=== PATIENT | male | born 1945 | race Two or more races ===

== ENCOUNTER → 2023-01-17 | Outpatient (CLI) | payer OTHER ==
[2023-01-17 10:12] LABS: Basophils # (auto) 0.1 10 ^3/uL (0-0.2); Basophils % (auto) 0.9 % (0.0-2.0); Eosinophils # (auto) 0.3 10 ^3/uL (0-0.8); Eosinophils % (auto) 4.1 % (0.0-7.0); Hematocrit 39.6 % (41.0-53.0); Hemoglobin 13.4 g/dL (13.5-17.5); Lymphocytes # (auto) 1.9 10 ^3/uL (0.4-5.4); Lymphocytes % (auto) 25.4 % (10.0-50.0); Mean Corpuscular Hemoglobin 31.5 pg (28.0-32.0); Mean Corpuscular Hgb Conc. 33.8 g/dL (32.0-36.0); Mean Corpuscular Volume 93.3 fL (80.0-100.0); Monocytes # (auto) 0.6 10 ^3/uL (0-1.3); Neutrophils # (auto) 4.6 10 ^3/uL (1.6-8.6); Neutrophils % (auto) 61.6 % (37.0-80.0); Nucleated Red Blood Cells % 0.1 %; Red Blood Cells 4.25 10^6/uL (4.5-5.90); White Blood Cell 7.5 10^3/uL (4.4-10.8)
[2023-01-17 10:50] LABS: Albumin 3.6 g/dL (3.4-5.0); BUN/Creatinine Ratio 20.2 (10.0-20.0); Potassium 4.2 mmol/L (3.5-5.1)
[2023-01-17 10:56] LABS: Bilirubin, Total 0.5 mg/dL (0.2-1.0); Total Protein 7.5 g/dL (6.4-8.2)
[2023-01-17 12:23] LABS: Urine Bacteria NONE SEEN /hpf (None Seen); Urine Blood Negative /uL (Negative); Urine Clarity Clear (Clear); Urine Color Yellow (Yellow); Urine Protein, UAD Negative (Negative); Urine Specific Gravity 1.023 (1.001-1.035); Urine Urobilinogen Normal (Negative); Urine WBC 2 /hpf (0 - 3); Urine pH 5.5 (5.0-8.0)
== END | disposition home or self-care (01) ==
LOC: LAB 09:52
PROVIDERS: ATTEND Internal Medicine
DX: Z12.11 Encounter for screening for malignant neoplasm of colon (principal); Z00.00 Encounter for general adult medical examination without abnormal findings; I10 Essential (primary) hypertension
CPT/HCPCS: 36415; 80053; 80061; 81001; 82270; 83036; 84443; 85025

== ENCOUNTER → 2023-02-15 | Outpatient (CLI) | payer OTHER | END | disposition home or self-care (01) | LOC: XYW 10:49 | PROVIDERS: ATTEND Internal Medicine | DX: I37.1 Nonrheumatic pulmonary valve insufficiency (principal); R01.1 Cardiac murmur, unspecified | CPT/HCPCS: 93306 ==

== ENCOUNTER → 2023-05-02 | Outpatient (CLI) | payer OTHER ==
[2023-05-02 09:28] LABS: Basophils # (auto) 0.1 10 ^3/uL (0-0.2); Basophils % (auto) 1.1 % (0.0-2.0); Eosinophils # (auto) 0.3 10 ^3/uL (0-0.8); Eosinophils % (auto) 4.3 % (0.0-7.0); Hematocrit 41.3 % (41.0-53.0); Lymphocytes # (auto) 1.9 10 ^3/uL (0.4-5.4); Mean Corpuscular Hemoglobin 32.1 pg (28.0-32.0); Mean Corpuscular Hgb Conc. 33.8 g/dL (32.0-36.0); Monocytes # (auto) 0.5 10 ^3/uL (0-1.3); Monocytes % (auto) 7.1 % (0.0-12.0); Neutrophils # (auto) 3.9 10 ^3/uL (1.6-8.6); Neutrophils % (auto) 58.5 % (37.0-80.0); Red Blood Cells 4.35 10^6/uL (4.5-5.90); White Blood Cell 6.6 10^3/uL (4.4-10.8)
[2023-05-02 10:38] LABS: Albumin 4.3 g/dL (3.2-4.8); Bilirubin, Direct 0.2 mg/dL (<0.3); Bilirubin, Total 0.6 mg/dL (0.2-1.0)
[2023-05-02 10:50] LABS: Hepatitis B Surface Antigen Negative (Negative)
[2023-05-02 11:11] LABS: Hepatitis A Ab IgM Negative
[2023-05-02 11:12] LABS: Hepatitis B Core IgM Negative; Hepatitis C Antibody Negative (Negative)
[2023-05-02 11:29] LABS: Creatinine, Urine 71.74 mg/dL (30.0-125.0)
== END | disposition home or self-care (01) ==
LOC: LAB 09:15
PROVIDERS: ATTEND Internal Medicine
DX: R73.03 Prediabetes (principal)
CPT/HCPCS: 36415; 80061; 80074; 80076; 82043; 82570; 85025

== ENCOUNTER → 2023-08-04 | Outpatient (CLI) | payer OTHER | END | disposition home or self-care (01) | LOC: LAB 09:01 | PROVIDERS: ATTEND Internal Medicine | DX: R73.03 Prediabetes (principal) | CPT/HCPCS: 36415; 83036 ==

== ENCOUNTER → 2023-10-28 | Outpatient (CLI) | payer OTHER | END | disposition home or self-care (01) | LOC: LAB 11:00 | PROVIDERS: ATTEND Family Medicine | DX: D48.5 Neoplasm of uncertain behavior of skin (principal) ==

== ENCOUNTER → 2023-11-04 | Outpatient (CLI) | payer OTHER ==
[2023-11-04 08:34] LABS: Creatinine, Urine 125.01 mg/dL (30.0-125.0)
== END | disposition home or self-care (01) ==
LOC: LAB 07:41
PROVIDERS: ATTEND Internal Medicine
DX: I12.9 Hypertensive chronic kidney disease with stage 1 through stage 4 chronic kidney disease, or unspecified chronic kidney disease (principal); E11.22 Type 2 diabetes mellitus with diabetic chronic kidney disease; N18.2 Chronic kidney disease, stage 2 (mild); E78.5 Hyperlipidemia, unspecified; E55.9 Vitamin D deficiency, unspecified
CPT/HCPCS: 36415; 82043; 82306; 82570; 82607

== ENCOUNTER → 2024-02-28 | Outpatient (CLI) | payer OTHER ==
[~2024-02-28] MED LIST: AMOX500T86 PO; LORA-1130 PO
[2024-02-28 09:31] LABS: Basophils # (auto) 0.1 10 ^3/uL (0-0.2); Basophils % (auto) 1.4 % (0.0-2.0); Eosinophils # (auto) 0.3 10 ^3/uL (0-0.8); Eosinophils % (auto) 4.3 % (0.0-7.0); Hematocrit 39.1 % (41.0-53.0); Hemoglobin 13.4 g/dL (13.5-17.5); Lymphocytes # (auto) 1.3 10 ^3/uL (0.4-5.4); Lymphocytes % (auto) 21.9 % (10.0-50.0); Mean Corpuscular Hemoglobin 33.4 pg (28.0-32.0); Mean Corpuscular Hgb Conc. 34.4 g/dL (32.0-36.0); Mean Corpuscular Volume 97.2 fL (80.0-100.0); Monocytes # (auto) 0.5 10 ^3/uL (0-1.3); Monocytes % (auto) 7.5 % (0.0-12.0); Neutrophils % (auto) 64.9 % (37.0-80.0); Platelet Count (auto) 317 10^3/uL (140-450); Red Blood Cells 4.02 10^6/uL (4.5-5.90); White Blood Cell 6.2 10^3/uL (4.4-10.8)
[2024-02-28 10:32] LABS: Alanine Aminotransferase 32 U/L (7-40); Albumin 4.1 g/dL (3.2-4.8); Alkaline Phosphatase 69 U/L (46-116); Anion Gap 5 (5-15); Aspartate Aminotransferase 18 U/L (13-40); Calcium 9.5 mg/dL (8.7-10.4); Carbon Dioxide 25 mmol/L (20-30); Chloride 112 mmol/L (98-107); Glucose 114 mg/dL (74-106); Potassium 4.2 mmol/L (3.5-5.1); Sodium 142 mmol/L (136-145)
[2024-02-28 10:33] LABS: BUN/Creatinine Ratio 18.9 (10.0-20.0); Blood Urea Nitrogen 17 mg/dL (9-23); Erythrocyte Sedimentation Rate 6 mm/hr (0-20)
[2024-02-28 10:34] LABS: Bilirubin, Total 0.3 mg/dL (0.2-1.0); Total Protein 6.5 g/dL (5.7-8.2)
== END | disposition home or self-care (01) ==
LOC: LAB 08:59
PROVIDERS: ATTEND Internal Medicine
DX: R73.03 Prediabetes (principal); G50.0 Trigeminal neuralgia
CPT/HCPCS: 36415; 80053; 83036; 85025; 85652

== ENCOUNTER → 2024-06-18 | Outpatient (CLI) | payer MEDICARE, OTHER ==
[2024-06-18 09:58] LABS: Basophils # (auto) 0.1 10 ^3/uL (0-0.2); Eosinophils # (auto) 0.3 10 ^3/uL (0-0.8); Eosinophils % (auto) 4.4 % (0.0-7.0); Hematocrit 42.9 % (41.0-53.0); Hemoglobin 14.4 g/dL (13.5-17.5); Lymphocytes % (auto) 28.6 % (10.0-50.0); Mean Corpuscular Hemoglobin 32.1 pg (28.0-32.0); Mean Corpuscular Hgb Conc. 33.5 g/dL (32.0-36.0); Mean Corpuscular Volume 95.8 fL (80.0-100.0); Monocytes # (auto) 0.6 10 ^3/uL (0-1.3); Nucleated Red Blood Cells % 0.1 %; Platelet Count (auto) 348 10^3/uL (140-450); Red Blood Cells 4.48 10^6/uL (4.5-5.90); Red Cell Distribution Width 13.2 % (11.8-14.3); White Blood Cell 6.9 10^3/uL (4.4-10.8)
[2024-06-18 10:16] LABS: Alanine Aminotransferase 32 U/L (7-40); Alkaline Phosphatase 85 U/L (46-116); Anion Gap 8 (5-15); BUN/Creatinine Ratio 26.4 (10.0-20.0); Calcium 9.9 mg/dL (8.7-10.4); Carbon Dioxide 24 mmol/L (20-31); Potassium 4.5 mmol/L (3.5-5.1); Sodium 140 mmol/L (136-145); Triglycerides 97 mg/dL (< 150)
[2024-06-18 10:17] LABS: Albumin 4.3 g/dL (3.2-4.8); Aspartate Aminotransferase 19 U/L (13-40); Bilirubin, Total 0.4 mg/dL (0.2-1.0); Cholesterol 183 mg/dL (< 200); Total Protein 6.9 g/dL (5.7-8.2)
[2024-06-18 10:35] LABS: Blood Urea Nitrogen 24 mg/dL (9-23); Chloride 108 mmol/L (98-107); Glucose 124 mg/dL (74-106); HDL Cholesterol 67 mg/dL (40-59); LDL Cholesterol 104 mg/dL (< 100)
[2024-06-18 10:57] LABS: Creatinine, Urine 71.09 mg/dL (30.0-125.0)
== END | disposition home or self-care (01) ==
LOC: LAB 08:40
PROVIDERS: ATTEND Internal Medicine
DX: D64.9 Anemia, unspecified (principal); I10 Essential (primary) hypertension; M81.0 Age-related osteoporosis without current pathological fracture; E11.9 Type 2 diabetes mellitus without complications
CPT/HCPCS: 36415; 80053; 80061; 82043; 82306; 82570; 82607; 83036; 84443; 85025

== ENCOUNTER → 2024-09-19 | Outpatient (CLI) | payer MEDICARE, MEDICAID ==
[2024-09-19 08:20] LABS: Alanine Aminotransferase 16 U/L (7-40); Albumin 4.3 g/dL (3.2-4.8); Alkaline Phosphatase 83 U/L (46-116); Anion Gap 5 (5-15); BUN/Creatinine Ratio 19.1 (10.0-20.0); Bilirubin, Total 0.4 mg/dL (0.2-1.0); Blood Urea Nitrogen 18 mg/dL (9-23); Calcium 9.4 mg/dL (8.7-10.4); Carbon Dioxide 24 mmol/L (20-31); Cholesterol 141 mg/dL (< 200); HDL Cholesterol 49 mg/dL (40-59); LDL Cholesterol 77 mg/dL (< 100); Potassium 4.2 mmol/L (3.5-5.1); Sodium 142 mmol/L (136-145); Total Protein 6.6 g/dL (5.7-8.2); Triglycerides 79 mg/dL (< 150)
[2024-09-19 08:21] LABS: Aspartate Aminotransferase 12 U/L (13-40); Chloride 113 mmol/L (98-107); Glucose 122 mg/dL (74-106)
== END | disposition home or self-care (01) ==
LOC: LAB 07:45
PROVIDERS: ATTEND Internal Medicine
DX: Z12.11 Encounter for screening for malignant neoplasm of colon (principal); E78.5 Hyperlipidemia, unspecified; R73.03 Prediabetes
CPT/HCPCS: 36415; 80053; 80061; 82270; 83036

== ENCOUNTER 2025-01-04 09:09 | Emergency (ER) | payer MEDICARE, MEDICAID ==
[~2025-01-04] VITALS: Ht 152.4 cm; Wt 74.3 kg
--- NOTE | 2025-01-04 09:30 | ED.PDOC ---
Eye-HPI HPI Comments A 79 YEAR OLD MALE PRESENTS TO THE ED WITH COMPLAINT OF RIGHT UPPER DENTAL PAIN. PATIENT STATES HE HAS BEEN EXPERIENCING RIGHT UPPER DENTAL PAIN FOR THE PAST 1 WEEK. PATIENT REPORTS HE ALSO HAD SINUS CONGESTION, SINUS PRESSURE, SINUS PAIN FOR THE PAST 1 WEEK. PATIENT NOTES HE WENT TO [facility] [address] A[address] A [address] MAXILLOFACIAL WITH IV CONTRAST AND BLOOD TEST WERE DONE WHICH WAS NORMAL AND WAS PRESCRIBED AUGMENTIN FOR SINUSITIS. PATIENT REPORTS THERE HAS BEEN NO IMPROVEMENT IN HIS SYMPTOMS AND WOULD LIKE TO BE EVALUATED ONCE AGAIN. PT REQUESTS PAIN MEDICATION. PATIENT DENIES FEVER, CHILLS, SHORTNESS OF BREATH, CHEST PAIN, ABDOMINAL PAIN, NAUSEA, VOMITING, HEADACHE, OR OTHER COMPLAINTS. NO OTHER SYMPTOMS OR MODIFYING FACTORS AT THIS TIME. PATIENT IS ALERT, ORIENTED X 4, AND HAS STEADY GAIT. Chief Complaint: Face pain Time Seen by MD: 09:27 Reviewed Notes: Nurses Notes, Medications, Allergies Allergies: Coded Allergies: NO KNOWN ALLERGIES (Unverified , 01/20/24) Home Meds Active Scripts Tramadol HCl (Tramadol HCl) 50 Mg Tab, 50 MG PO BID, #20 TAB Prov:JOSE SERRATO 01/04/25 Clindamycin Hcl (Clindamycin Hcl) 300 Mg Cap, 1 CAP PO TID, #30 CAP Prov:JOSE SERRATO 01/04/25 Loratadine & Pseudoephedrine (Claritin-D 24 Hour 10-240 mg) 1 Tab Tab, 1 TAB PO DAILY PRN for 7 Days, #7 TAB Prov:CARMENZA BOYD MD 01/20/24 Amoxicillin & Pot Clavulanate (Augmentin) 500 Mg Tab, 1 TAB PO BID, #14 TAB Prov:CARMENZA BOYD MD 01/20/24 Information Source: Patient Mode of Arrival: Ambulatory Timing: Days Duration: Since onset, Days Prehospital treatment: None Quality: Pain, Red Lids: Normal Conjunctiva: Normal Cornea: Normal Pupils: Normal EOM: Normal Fundus: Normal Slit lamp exam: Normal Anterior chamber: Normal Mouth Location: Right, Upper, Tooth/Teeth, Gums Mouth: Right, Upper, Premolar, Molar, Tender, Carious ENT Ear Exam: Normal, Normal, Normal Nose: Normal Sinuses: Frontal Oropharynx: Normal Onset: Spontaneous Throat Exposed to: None History of: None Last Tetanus: Unknown Modifying factors: Nothing Associated signs and symptoms: Nasal Symptoms, Tooth Pain Past Medical History PAST MEDICAL HISTORY: High Lipids, HTN Surgical History: Denies all surgeries Family History Family History: Reviewed,noncontributory to illness, No family hx of Cancer, No family hx of DM, No family hx of Heart argenis, No family hx of HTN, No family hx ofKidney argenis, No family hx of Liver argenis, No family hx of Lung argenis, No family hx of Stroke Social History Smoker: Non-Smoker Alcohol: Denies ETOH Use Drugs: Denies Drug Use Lives In: Home Constitutional: denies: chills, diaphoresis, fatigue, fever, malaise, sweats, weakness, others EENTM: reports: mouth pain (RIGHT UPPER DENTAL PAIN), nose congestion; denies: blurred vision, double vision, ear bleeding, ear discharge, ear drainage, ear pain, ear ringing, eye pain, eye redness, hearing loss, mouth swelling, nasal discharge, nose bleeding, nose pain, photophobia, tearing, throat pain, throat swelling, voice changes Respiratory: denies: cough, hemoptysis, orthopnea, SOB at rest, shortness of breath, SOB with excertion, stridor, wheezing, others Cardiovascular: denies: chest pain, dizzy spells, diaphoresis, Dyspnea on exertion, edema, irregular heart beat, left arm pain, lightheadedness, palpitations, PND, syncope, others Gastrointestinal: denies: abdomen distended, abdominal pain, blood streaked bowels, constipated, diarrhea, dysphagia, difficulty swallowing, hematemesis, melena, nausea, poor appetite, poor fluid intake, rectal bleeding, rectal pain, vomiting, others Genitourinary: denies: burning, dysuria, flank pain, frequency, hematuria, incontinence, penile discharge, penile sore, pain, testicle pain, testicle swelling, urgency, others Neurological: denies: dizziness, fainting, headache, left sided numbness, left sided weakness, numbness, paresthesia, pre-existing deficit, right sided numbness, right sided weakness, seizure, speech problems, tingling, tremors, weakness, others Musculoskeletal: denies: back pain, gout, joint pain, joint swelling, muscle pain, muscle stiffness, neck pain, others Integumetry: denies: bruises, change in color, change in hair/nails, dryness, laceration, lesions, lumps, rash, wounds, others Allergic/Immunocompromised: denies: Difficulty Healing, Frequent Infections, Hives, Itching, others Hematologic/Lymphatic: denies: anemia, blood clots, easy bleeding, easy bruising, swollen glands, others Endocrine: denies: excessive hunger, excessive sweating, excessive thirst, excessive urination, flushing, intolerance to cold, intolerance to heat, unexplained weight gain, unexplained weight loss, others Psychiatric: denies: anxiety, bipolar disorder, depression, hopeless, panic disorder, schizophrenia, sleepless, suicidal, others All Other Systems: Reviewed and Negative Physical Exam General Appearance: No Apparent Distress, Normal HEENT: Normal ENT Inspection, PERRL/EOMI, Pharynx Normal, Sinuses (TENDERNESS ON RIGHT MAXILLARY SINUSES, NO NASAL CONGESTION AND POST NASAL DRIP, NO FACIAL SWELLING. ), TMs Normal, Other (ERYTHEMA AND SWELLING ON RIGHT UPPER GUM AROUND TOOTH, DENTAL INFECTION, NO FACIAL SWELLING. ) Neck: Full Range of Motion, Non-Tender, Normal, Normal Inspection Respiratory: Chest Non-Tender, Lungs Clear, No Accessory Muscle Use, No Respiratory Distress, Normal Breath Sounds Cardiovascular: No Edema, No JVD, No Murmur, No Gallop, Normal Peripheral Pulses, Regular Rate/Rhythm Breast Exam: Deferred Gastrointestinal: No Organomegaly, Non Tender, No Pulsatile Mass, Normal Bowel Sounds, Soft Genitalia: Deferred Pelvic: Deferred Rectal: Deferred Extremities: No calf tenderness, Normal capillary refill, Normal inspection, Normal range of motion, Non-tender, No pedal edema Musculoskeletal : Apperance: Normal Neurologic: Alert, can labeler II-XII nml as Tested, No Motor Deficits, Normal Affect, Normal Mood, No Sensory Deficits Cerebellar Function: Normal Reflexes: Normal Skin: Dry, Normal Color, Warm Peripheral Pulses: 2+ carotid (R), 2+ carotid (L) Lymphatic: No Adenopathy Was a procedure done? Was a procedure done?: No EENT DIFF Eye: N/A Ear: Otitis Media, Dental, Pharyngitis, Sinusitis Nose: N/A Mouth: Other (DENTAL PAIN, DENTAL CARIES, DENTAIN INFECTION, DENTAL ABSCESS, GINGIVITIS) Sore Throat: N/A X-Ray, Labs, Meds, VS Vital Signs Date Time Temp Pulse Resp B/P (MAP) Pulse Ox O2 Delivery O2 Flow Rate FiO2 01/04/25 09:22 98.3 87 16 143/92 (109) 94 98.3 X-Ray, Labs, Meds, VS Comment EXTERNAL MEDICAL RECORDS REVIEWED: [NONE] INDEPENDENT HISTORIANS: [NONE] SOCIAL DETERMINANTS OF HEALTH: [NONE] LABS ORDERED: NONE REVIEWED AND INTERPRETED RESULTS: NONE IMAGING ORDERED: NONE, PATIENT WAS OFFERED A CT SCAN OF HIS HEAD, BUT PATIENT DECLINED AT THIS TIME HE STATES HE ALREADY HAD A CT SCAN DONE AT [facility]. TREATMENTS ORDERED: ROCEPHIN 1G IM PROCEDURES PERFORMED: NONE CRITICAL CARE TIME: NONE I HAVE DISCUSSED THE PATIENT WITH THE ATTENDING PHYSICIAN DR. RIOS AND HE AGREES WITH THE PATIENT'S PLAN OF CARE AND DISPOSITION. BASED ON HISTORY OF PRESENT ILLNESS, AND PHYSICAL EXAM, PATIENT WILL BE DISCHARGED HOME. DISCUSSED PLAN FOR DISCHARGE HOME WITH RX [CLINDAMYCIN AND ULTRAM. MEDICATION WARNINGS GIVEN. SHARED DECISION MAKING: PATIENT INSTRUCTED TO FOLLOW UP WITH PRIMARY CARE PROVIDER IN 1-2 DAYS FOR RE-EVALUATION OF SYMPTOMS. PATIENT VERBALIZES UNDERSTANDING TO RETURN TO ED FOR NEW OR WORSENING SYMPTOMS OR IF FOLLOW UP WITH PCP CANNOT BE OBTAINED. PATIENT FEELS COMFORTABLE GOING HOME AT THIS TIME. ALL QUESTIONS ADDRESSED AT TIME OF DISCHARGE. Time of 1ST Reevaluation: 10:00 Reevaluation 1ST: Improved Patient Education/Counseling: Diagnosis, Treatment, Need For Follow Up Family Education/Counseling: Diagnosis, Treatment, Need For Follow Up Medical Screening: No EMC Exist At This Time SEPSIS Sepsis Screen Vital Signs Date Time Temp Pulse Resp B/P (MAP) Pulse Ox O2 Delivery O2 Flow Rate FiO2 01/04/25 09:22 98.3 87 16 143/92 (109) 94 98.3 Departure 1 Departure Time of Disposition: 10:20 Impression: Primary Impression: Dental infection Additional Impression: Acute sinusitis Qualified Codes: J01.00 - Acute maxillary sinusitis, unspecified Disposition: HOME / SELF CARE / HOMELESS Condition: Stable Additional Instructions: FOLLOW-UP WITH PCP AND DENTIST IN 1 TO 2 DAYS. TAKE MEDICATIONS PRESCRIBED. RETURN TO ED FOR ANY NEW OR WORSENING SYMPTOMS. e-Prescriptions Tramadol HCl (Tramadol HCl) 50 Mg Tab 50 MG PO BID, #20 TAB Prov: JOSE SERRATO 01/04/25 Clindamycin Hcl (Clindamycin Hcl) 300 Mg Cap 1 CAP PO TID, #30 CAP Prov: JOSE SERRATO 01/04/25 Discharged With: Self Critical Care Note Critical Care Time?: No Stability Stability form required: No I personally scribed for JOSE SERRATO ([email or web address]) on 01/04/25 at 09:30. Electronically submitted by Gilmer Schneider ([email or web address]). I personally scribed for JOSE SERRATO ([email or web address]) on 01/04/25 at 09:35. Electronically submitted by Gilmer Schneider ([email or web address]). JOSE SERRATO Jan 04, 2025 09:30
[2025-01-04] MEDS ORDERED: TRAM-626 PO (09:35)
[2025-01-04] MEDS ORDERED: CLIN1CAP70 PO (09:35)
[2025-01-04] MEDS: cefTRIAXone SOD 1,000 MG VL IM ONE (09:58)
[2025-01-04 10:06] VITALS: BP 134/77; PULSE 80; RESP 16; TEMP 98.4; O2SAT 94
== END 2025-01-04 10:05 | disposition home or self-care (01) ==
LOC: ER 09:11
DX: K04.7 Periapical abscess without sinus (principal); J01.00 Acute maxillary sinusitis, unspecified; I10 Essential (primary) hypertension; E78.5 Hyperlipidemia, unspecified; Z79.899 Other long term (current) drug therapy
CPT/HCPCS: 96372; 99283; J0696

== ENCOUNTER 2025-01-08 09:28 | Emergency (ER) | payer MEDICARE, MEDICAID ==
[~2025-01-08] VITALS: Ht 165.1 cm; Wt 73.7 kg
[~2025-01-08 09:28] MED LIST changes: +CLIN1CAP70 PO; +TRAM-626 PO
--- NOTE | 2025-01-08 09:54 | ED.PDOC ---
History of Present Illness HPI Comments 79-year-old male with a history of hypertension, hyperlipidemia, trigeminal neuralgia, and tobacco use, presents to the ED for the chief complaint of 5/10 right-sided facial pain below the cheek bone. Patient states that was previously diagnosed with a sinus infection on 01-04-25, but his pain has been going on for the past two weeks, with no alleviating factors. Patient denies any nausea, vomiting, diarrhea, headache, photophobia, congestion, or any other symptoms or modifiers at this time. Time Seen by MD: 09:47 Reviewed Notes: Nurses Notes, Medications, Allergies Allergies: Coded Allergies: NO KNOWN ALLERGIES (Unverified , 01/20/24) Home Meds Active Scripts Tramadol HCl (Tramadol HCl) 50 Mg Tab, 50 MG PO BID, #20 TAB Prov:JOSE SERRATO 01/04/25 Clindamycin Hcl (Clindamycin Hcl) 300 Mg Cap, 1 CAP PO TID, #30 CAP Prov:JOSE SERRATO 01/04/25 Loratadine & Pseudoephedrine (Claritin-D 24 Hour 10-240 mg) 1 Tab Tab, 1 TAB PO DAILY PRN for 7 Days, #7 TAB Prov:CARMENZA BOYD MD 01/20/24 Amoxicillin & Pot Clavulanate (Augmentin) 500 Mg Tab, 1 TAB PO BID, #14 TAB Prov:CARMENZA BOYD MD 01/20/24 Information Source: Patient Mode of Arrival: Ambulatory Severity: Moderate Timing: Weeks Duration: Intermittent Prehospital treatment: None Past Medical History PAST MEDICAL HISTORY: High Lipids, HTN Surgical History: Denies all surgeries Family History Family History: Reviewed,noncontributory to illness, No family hx of Cancer, No family hx of DM, No family hx of Heart argenis, No family hx of HTN, No family hx ofKidney argenis, No family hx of Liver argenis, No family hx of Lung argenis, No family hx of Stroke Social History Smoker: Non-Smoker Alcohol: Denies ETOH Use Drugs: Denies Drug Use Lives In: Home Constitutional: denies: chills, diaphoresis, fatigue, fever, malaise, sweats, weakness, others EENTM: reports: nose congestion, nose pain; denies: blurred vision, double vision, ear bleeding, ear discharge, ear drainage, ear pain, ear ringing, eye pain, eye redness, hearing loss, mouth pain, mouth swelling, nasal discharge, nose bleeding, photophobia, tearing, throat pain, throat swelling, voice changes, others Respiratory: denies: cough, hemoptysis, orthopnea, SOB at rest, shortness of breath, SOB with excertion, stridor, wheezing, others Cardiovascular: denies: chest pain, dizzy spells, diaphoresis, Dyspnea on exertion, edema, irregular heart beat, left arm pain, lightheadedness, palpitations, PND, syncope, others Gastrointestinal: denies: abdomen distended, abdominal pain, blood streaked bowels, constipated, diarrhea, dysphagia, difficulty swallowing, hematemesis, melena, nausea, poor appetite, poor fluid intake, rectal bleeding, rectal pain, vomiting, others Genitourinary: denies: burning, dysuria, flank pain, frequency, hematuria, incontinence, penile discharge, penile sore, pain, testicle pain, testicle swelling, urgency, others Neurological: denies: dizziness, fainting, headache, left sided numbness, left sided weakness, numbness, paresthesia, pre-existing deficit, right sided numbness, right sided weakness, seizure, speech problems, tingling, tremors, weakness, others Musculoskeletal: denies: back pain, gout, joint pain, joint swelling, muscle pain, muscle stiffness, neck pain, others Integumetry: denies: bruises, change in color, change in hair/nails, dryness, laceration, lesions, lumps, rash, wounds, others Allergic/Immunocompromised: denies: Difficulty Healing, Frequent Infections, Hives, Itching, others Hematologic/Lymphatic: denies: anemia, blood clots, easy bleeding, easy bruising, swollen glands, others Endocrine: denies: excessive hunger, excessive sweating, excessive thirst, excessive urination, flushing, intolerance to cold, intolerance to heat, unexplained weight gain, unexplained weight loss, others Psychiatric: denies: anxiety, bipolar disorder, depression, hopeless, panic disorder, schizophrenia, sleepless, suicidal, others All Other Systems: Reviewed and Negative Physical Exam General Appearance: Mild Distress, Normal HEENT: Normal ENT Inspection, Pharynx Normal, Sinuses (Notable crepitus to the right TMJ, airway intact, mmm), TMs Normal Neck: Full Range of Motion, Non-Tender, Normal, Normal Inspection Respiratory: Chest Non-Tender, Lungs Clear, No Accessory Muscle Use, No Respiratory Distress, Normal Breath Sounds Cardiovascular: No Edema, No JVD, No Murmur, No Gallop, Normal Peripheral Pulses, Regular Rate/Rhythm Breast Exam: Deferred Gastrointestinal: No Organomegaly, Non Tender, No Pulsatile Mass, Normal Bowel Sounds, Soft Genitalia: Deferred Pelvic: Deferred Rectal: Deferred Extremities: No calf tenderness, Normal capillary refill, Normal inspection, Normal range of motion, Non-tender, No pedal edema Musculoskeletal : Apperance: Normal Neurologic: Alert, spanish teacher II-XII nml as Tested, No Motor Deficits, Normal Affect, Normal Mood, No Sensory Deficits Cerebellar Function: Normal Reflexes: Normal Skin: Dry, Normal Color, Warm Lymphatic: No Adenopathy Was a procedure done? Was a procedure done?: No X-Ray, Labs, Meds, VS Vital Signs Date Time Temp Pulse Resp B/P (MAP) Pulse Ox O2 Delivery O2 Flow Rate FiO2 01/08/25 09:40 97.8 91 18 131/90 (104) 94 97.8 Lab Test 01/08/25 10:29 01/08/25 10:21 Range/Units White Blood Count 7.4 4.4-10.8 10^3/uL Red Blood Count 4.43 L 4.5-5.90 10^6/uL Hemoglobin 14.7 13.5-17.5 g/dL Hematocrit 42.0 41.0-53.0 % Mean Corpuscular Volume 94.7 80.0-100.0 fL Mean Corpuscular Hemoglobin 33.0 H 28.0-32.0 pg Mean Corpuscular Hemoglobin Concent 34.9 32.0-36.0 g/dL Red Cell Distribution Width 13.2 11.8-14.3 % Platelet Count 334 140-450 10^3/uL Mean Platelet Volume 8.3 6.9-10.8 fL Neutrophils (%) (Auto) 65.6 37.0-80.0 % Lymphocytes (%) (Auto) 23.2 10.0-50.0 % Monocytes (%) (Auto) 7.8 0.0-12.0 % Eosinophils (%) (Auto) 2.5 0.0-7.0 % Basophils (%) (Auto) 0.9 0.0-2.0 % Neutrophils # (Auto) 4.9 1.6-8.6 10 ^3/uL Lymphocytes # (Auto) 1.7 0.4-5.4 10 ^3/uL Monocytes # (Auto) 0.6 0-1.3 10 ^3/uL Eosinophils # (Auto) 0.2 0-0.8 10 ^3/uL Basophils # (Auto) 0.1 0-0.2 10 ^3/uL Nucleated Red Blood Cells 0.1 % Erythrocyte Sedimentation Rate 6 0-20 mm/hr Sodium Level 138 136-145 mmol/L Potassium Level 4.0 3.5-5.1 mmol/L Chloride Level 105 98-107 mmol/L Carbon Dioxide Level 24 20-31 mmol/L Anion Gap 9 5-15 Blood Urea Nitrogen 20 9-23 mg/dL Creatinine 1.10 0.700-1.30 mg/dL Glomerular Filtration Rate Calc 69 >90 mL/min BUN/Creatinine Ratio 18.2 10.0-20.0 Serum Glucose 120 H 74-106 mg/dL Calcium Level 9.8 8.7-10.4 mg/dL C-Reactive Protein High Sensitivity 0.09 <1.0 mg/dL X-Ray, Labs, Meds, VS Comment 79-year-old male with a history of hypertension, hyperlipidemia, trigeminal neuralgia, and tobacco use, presents to the ED for the chief complaint of 5/10 right-sided facial pain below the cheek bone. Patient arrives alert and oriented, ABC's intact, afebrile, vital signs stable, saturating well in room air CBC was ordered to exclude anemia, blood loss, or infection. BMP was ordered to exclude electrolyte abnormalities, renal failure, dehydration, hyperglycemia CMP was ordered to exclude electrolyte abnormalities, renal failure, dehydration, hyperglycemia and/or liver enzyme abnormalities. Urinalysis was ordered to rule out UTI or hematuria. Sed rate ordered for possible inflammation Diagnostic imaging ordered by me and results interpreted by radiology : Labs in the ED showed (pertinent+ and then pertinent-) Patient was given:_. Tolerated medications with no adverse reaction. On reevaluation, patient had symptomatic improvement. Patient is stable for discharge at this time. External notes reviewed. Test results and diagnostic imaging interpreted. All diagnostic findings, discharge care, education and instructions provided Follow-up with PCP in 2 to 3 days Patient verbalized understanding and agreed to treatment plan Vital signs stable, afebrile, no acute distress noted Patient ambulatory with strong steady gait Advised to return precautions for any new or worsening symptoms, return to ER immediately for re-evaluation Patient is aware that the purpose of this visit was for an acute medical emergency requiring emergent stabilization. Chronic conditions, including malignancies have not been ruled out. Patient is instructed to follow up with PCP as directed and discharge instructions for continued care and workup. If unable to arrange follow-up, patient is to return to the emergency department for reassessment. Patient (parent or legal guardian if applicable) was given verbal and written discharge instructions and acknowledges understanding. Additional MDM Review of External, Non-ED records: External records reviewed. Discussion with independent historian (EMS, family) history obtained from the patient/parents (if applicable) at bedside Chronic conditions affecting care: None Social determinants of health affecting care: None Time of 1ST Reevaluation: 10:19 Reevaluation 1ST: Unchanged Patient Education/Counseling: Diagnosis, Treatment, Need For Follow Up Family Education/Counseling: No Family Present SEPSIS Sepsis Screen Physician Orders C-Reactive Protein (01/08/25 09:53) Vital Signs Date Time Temp Pulse Resp B/P (MAP) Pulse Ox O2 Delivery O2 Flow Rate FiO2 01/08/25 09:40 97.8 91 18 131/90 (104) 94 97.8 Laboratory Tests Test 01/08/25 10:29 White Blood Count 7.4 10^3/uL (4.4-10.8) Departure 1 Departure Time of Disposition: 11:55 Impression: Primary Impression: Trigeminal neuralgia of right side of face Disposition: 01 HOME / SELF CARE / HOMELESS Condition: Stable e-Prescriptions Gabapentin (Gabapentin) 300 Mg Cap 1 CAP PO DAILY for 30 Days, #30 CAP 0 Refills Prov: MENG ANG MANAGER LOCATION 01/08/25 Critical Care Note Critical Care Time?: No Stability Stability form required: No Heart Score Heart Score: Heart Score Response (Comments) Value History N/A 0 EKG N/A 0 Age N/A 0 Risk Factors N/A 0 Troponin N/A 0 Total 0 I personally scribed for MENG ANG MANAGER LOCATION ([email or web address]) on 01/08/25 at 09:54. Electronically submitted by Dionte Doyle ([email or web address]). MENG ANG NP Jan 08, 2025 09:54
[2025-01-08 10:50] LABS: Hematocrit 42.0 % (41.0-53.0); Hemoglobin 14.7 g/dL (13.5-17.5); Mean Corpuscular Hemoglobin 33.0 pg (28.0-32.0); Mean Corpuscular Volume 94.7 fL (80.0-100.0); Nucleated Red Blood Cells % 0.1 %
[2025-01-08 10:54] LABS: Chloride 105 mmol/L (98-107); Potassium 4.0 mmol/L (3.5-5.1); Sodium 138 mmol/L (136-145)
[2025-01-08 10:55] LABS: Anion Gap 9 (5-15); Calcium 9.8 mg/dL (8.7-10.4); Carbon Dioxide 24 mmol/L (20-31)
[2025-01-08 11:00] LABS: BUN/Creatinine Ratio 18.2 (10.0-20.0); Blood Urea Nitrogen 20 mg/dL (9-23)
[2025-01-08 11:01] LABS: Glucose 120 mg/dL (74-106)
[2025-01-08] MEDS ORDERED: GABA-1250 PO (11:58)
[2025-01-08 12:09] VITALS: BP 116/79; PULSE 80; RESP 16; TEMP 98.4; O2SAT 95
== END 2025-01-08 12:11 | disposition home or self-care (01) ==
LOC: ER 09:28
DX: G50.0 Trigeminal neuralgia (principal); E78.5 Hyperlipidemia, unspecified; I10 Essential (primary) hypertension; Z79.899 Other long term (current) drug therapy
CPT/HCPCS: 36415; 80048; 85025; 85652; 86141

== ENCOUNTER 2025-01-21 08:13 | Outpatient (CLI) | payer MEDICARE, MEDICAID ==
[~2025-01-21 08:13] MED LIST changes: +GABA-1250 PO
[2025-01-21 09:02] LABS: Alanine Aminotransferase 25 U/L (7-40); Albumin 4.4 g/dL (3.2-4.8); Alkaline Phosphatase 70 U/L (46-116); Anion Gap 8 (5-15); BUN/Creatinine Ratio 13.9 (10.0-20.0); Bilirubin, Total 0.4 mg/dL (0.2-1.0); Blood Urea Nitrogen 14 mg/dL (9-23); Calcium 9.3 mg/dL (8.7-10.4); Carbon Dioxide 25 mmol/L (20-31); Cholesterol 157 mg/dL (< 200); HDL Cholesterol 54 mg/dL (40-59); Potassium 4.1 mmol/L (3.5-5.1); Sodium 142 mmol/L (136-145); Total Protein 6.6 g/dL (5.7-8.2); Triglycerides 93 mg/dL (< 150)
[2025-01-21 09:03] LABS: Chloride 109 mmol/L (98-107); Glucose 120 mg/dL (74-106)
[2025-01-21 09:11] LABS: Microalb/Creat Ratio, Urine 3.0
== END 2025-01-21 17:00 | disposition home or self-care (01) ==
LOC: LAB 08:13
PROVIDERS: ATTEND Internal Medicine
DX: I10 Essential (primary) hypertension (principal); E11.9 Type 2 diabetes mellitus without complications; E78.5 Hyperlipidemia, unspecified
CPT/HCPCS: 36415; 80053; 80061; 82043; 82570; 83036

== ENCOUNTER 2025-02-12 08:55 | Inpatient (IN) | payer MEDICARE, MEDICAID ==
[~2025-02-12] VITALS: Ht 165.1 cm; Wt 74.5 kg
--- NOTE | 2025-02-12 09:36 | ED.PDOC ---
History of Present Illness HPI Comments 79-year-old male who comes in with chief complaint of shortness a breath. The patient states that the symptoms started that midnight. The patient denies any cough at this time. There has been no fever or chills. The patient also denies any chest pain. He states he has has a history of shortness a breath in the past but has never been diagnosed with anything. The patient does admit to using a significant amount of cigarettes. There has been no recent illness or exposure to anyone with illness. Chief Complaint: Shortness of Breath Time Seen by MD: 09:00 Primary Care Provider: NORA Boone Notes: Nurses Notes, Medications, Allergies (No allergies to medications) Allergies: Coded Allergies: NO KNOWN ALLERGIES (Unverified , 01/20/24) Home Meds Active Scripts Gabapentin (Gabapentin) 300 Mg Cap, 1 CAP PO DAILY for 30 Days, #30 CAP 0 Refills Prov:MENG ANG NP 01/08/25 Tramadol HCl (Tramadol HCl) 50 Mg Tab, 50 MG PO BID, #20 TAB Prov:JOSE SERRATO 01/04/25 Clindamycin Hcl (Clindamycin Hcl) 300 Mg Cap, 1 CAP PO TID, #30 CAP Prov:JOSE SERRATO 01/04/25 Loratadine & Pseudoephedrine (Claritin-D 24 Hour 10-240 mg) 1 Tab Tab, 1 TAB PO DAILY PRN for 7 Days, #7 TAB Prov:CARMENZA BOYD MD 01/20/24 Amoxicillin & Pot Clavulanate (Augmentin) 500 Mg Tab, 1 TAB PO BID, #14 TAB Prov:CARMENZA BOYD MD 01/20/24 Information Source: Patient Mode of Arrival: Ambulatory Severity: Moderate Timing: Hours Duration: Since onset Prehospital treatment: None Associated signs and symptoms Shortness of breath but no chest pain Past Medical History PAST MEDICAL HISTORY: High Lipids, HTN Surgical History: Hernia Repair Family History Family History: Reviewed,noncontributory to illness, No family hx of Cancer, No family hx of DM, No family hx of Heart argenis, No family hx of HTN, No family hx ofKidney argenis, No family hx of Liver argenis, No family hx of Lung argenis, No family hx of Stroke Social History Smoker: Cigarettes Alcohol: Denies ETOH Use Drugs: Denies Drug Use Lives In: Home Constitutional: denies: chills, diaphoresis, fatigue, fever, malaise, sweats, weakness, others EENTM: denies: blurred vision, double vision, ear bleeding, ear discharge, ear drainage, ear pain, ear ringing, eye pain, eye redness, hearing loss, mouth pain, mouth swelling, nasal discharge, nose bleeding, nose congestion, nose pain, photophobia, tearing, throat pain, throat swelling, voice changes, others Respiratory: reports: shortness of breath; denies: cough, hemoptysis, orth opnea, SOB at rest, SOB with excertion, stridor, wheezing, others Cardiovascular: denies: chest pain, dizzy spells, diaphoresis, Dyspnea on exertion, edema, irregular heart beat, left arm pain, lightheadedness, palpitations, PND, syncope, others Gastrointestinal: denies: abdomen distended, abdominal pain, blood streaked bowels, constipated, diarrhea, dysphagia, difficulty swallowing, hematemesis, melena, nausea, poor appetite, poor fluid intake, rectal bleeding, rectal pain, vomiting, others Genitourinary: denies: burning, dysuria, flank pain, frequency, hematuria, in continence, penile discharge, penile sore, pain, testicle pain, testicle swelling, urgency, others Neurological: denies: dizziness, fainting, headache, left sided numbness, left sided weakness, numbness, paresthesia, pre-existing deficit, right sided numbness, right sided weakness, seizure, speech problems, tingling, tremors, weakness, others Musculoskeletal: denies: back pain, gout, joint pain, joint swelling, muscle pain, muscle stiffness, neck pain, others Integumetry: denies: bruises, change in color, change in hair/nails, dryness, laceration, lesions, lumps, rash, wounds, others Allergic/Immunocompromised: denies: Difficulty Healing, Frequent Infections, Hives, Itching, others Hematologic/Lymphatic: denies: anemia, blood clots, easy bleeding, easy bruising, swollen glands, others Endocrine: denies: excessive hunger, excessive sweating, excessive thirst, excessive urination, flushing, intolerance to cold, intolerance to heat, unexplained weight gain, unexplained weight loss, others Psychiatric: denies: anxiety, bipolar disorder, depression, hopeless, panic disorder, schizophrenia, sleepless, suicidal, others Physical Exam General Appearance: Moderate Distress HEENT: Normal ENT Inspection, Pharynx Normal, TMs Normal Neck: Full Range of Motion, Non-Tender, Normal, Normal Inspection Respiratory: Chest Non-Tender, Lungs Clear, No Accessory Muscle Use, Respiratory Distress Cardiovascular: No Edema, No JVD, No Murmur, No Gallop, Normal Peripheral Pulses, Regular Rate/Rhythm Breast Exam: Deferred Gastrointestinal: No Organomegaly, Non Tender, No Pulsatile Mass, Normal Bowel Sounds, Soft Genitalia: Deferred Pelvic: Deferred Rectal: Deferred Extremities: No calf tenderness, Normal capillary refill, Normal inspection, Normal range of motion, Non-tender, No pedal edema Musculoskeletal : Apperance: Normal Neurologic: Alert, geosciences professor II-XII nml as Tested, No Motor Deficits, Normal Affect, Normal Mood, No Sensory Deficits Cerebellar Function: Normal Reflexes: Normal Skin: Dry, Normal Color, Warm Lymphatic: No Adenopathy Was a procedure done? Was a procedure done?: No EKG EKG : Pulse Rate (adult): 77 [place]: Normal Block: None ST: Nonsp Differential Dx Considerations may include: COPD, CHF, pneumonia X-Ray, Labs, Meds, VS Vital Signs Date Time Temp Pulse Resp B/P (MAP) Pulse Ox O2 Delivery O2 Flow Rate FiO2 02/12/25 11:00 20 95 Room Air* 0 21 02/12/25 09:36 77 02/12/25 09:05 77 02/12/25 08:57 98.3 80 18 148/73 96 98.3 Lab Test 02/12/25 10:40 Range/Units White Blood Count 6.2 4.4-10.8 10^3/uL Red Blood Count 4.43 L 4.5-5.90 10^6/uL Hemoglobin 14.5 13.5-17.5 g/dL Hematocrit 41.8 41.0-53.0 % Mean Corpuscular Volume 94.3 80.0-100.0 fL Mean Corpuscular Hemoglobin 32.7 H 28.0-32.0 pg Mean Corpuscular Hemoglobin Concent 34.6 32.0-36.0 g/dL Red Cell Distribution Width 12.9 11.8-14.3 % Platelet Count 393 140-450 10^3/uL Mean Platelet Volume 7.6 6.9-10.8 fL Neutrophils (%) (Auto) 69.7 37.0-80.0 % Lymphocytes (%) (Auto) 21.1 10.0-50.0 % Monocytes (%) (Auto) 7.3 0.0-12.0 % Eosinophils (%) (Auto) 1.3 0.0-7.0 % Basophils (%) (Auto) 0.6 0.0-2.0 % Neutrophils # (Auto) 4.3 1.6-8.6 10 ^3/uL Lymphocytes # (Auto) 1.3 0.4-5.4 10 ^3/uL Monocytes # (Auto) 0.5 0-1.3 10 ^3/uL Eosinophils # (Auto) 0.1 0-0.8 10 ^3/uL Basophils # (Auto) 0 0-0.2 10 ^3/uL Nucleated Red Blood Cells 0.1 % Sodium Level 140 136-145 mmol/L Potassium Level 4.0 3.5-5.1 mmol/L Chloride Level 108 H 98-107 mmol/L Carbon Dioxide Level 24 20-31 mmol/L Anion Gap 8 5-15 Blood Urea Nitrogen 15 9-23 mg/dL Creatinine 0.90 0.700-1.30 mg/dL Glomerular Filtration Rate Calc 88 >90 mL/min BUN/Creatinine Ratio 16.7 10.0-20.0 Serum Glucose 115 H 74-106 mg/dL Calcium Level 9.1 8.7-10.4 mg/dL B-Type Natriuretic Peptide 25.95 0-100 pg/mL Current Medications Medications (Trade) Dose Ordered Sig/Joseph Route Start Time Stop Time Status Last Admin Ipratropium [place] (Atrovent Medneb) 1 mg ONCE ONCE [facility] 02/12/25 09:30 02/12/25 09:31 DC 02/12/25 11:00 Albuterol (Ventolin Medneb) 10 mg ONCE ONCE [facility] 02/12/25 09:30 02/12/25 09:31 IA 02/12/25 11:00 The patient was given a breathing treatment of albuterol and Atrovent. The BNP is within normal limits The CBC and chemistry panel are within normal limits An IV Hep-Lock was established The patient was given Solu-Medrol 125 mg IV push The patient is being admitted at this time A pulmonary consult will be obtained. The patient is admitted Images Reviewed?: Images reviewed and evaluated by me Time of 1ST Reevaluation: 11:30 Reevaluation 1ST: Unchanged Patient Education/Counseling: Diagnosis, Treatment, Prognosis Family Education/Counseling: No Family Present SEPSIS Sepsis Screen Date sepsis recognized/suspect: Feb 12, 2025 Time Sepsis recognized/suspect: 1856 Recent Procedure: No On Antibiotic Therapy: No Respiratory Rate >20: No Heart Rate >90: No Temp<36 C (96.8 F) or >38.3 C: No SBP <90 or MAP <65 mmHG: No New Acute Mental Status Change: No Is the patient on CPAP, BIPAP,: No Physician Orders Electrocardigram (02/12/25 09:08) Med Neb Initial Treatment (02/12/25 09:26) Pulse Oximetry (02/12/25 09:26) Product Management Consultant (02/12/25 09:26) Blood Pressure (02/12/25 09:26) Chest Two Views Routine (02/12/25 09:26) Vital Signs Date Time Temp Pulse Resp B/P (MAP) Pulse Ox O2 Delivery O2 Flow Rate FiO2 02/12/25 11:00 20 95 Room Air* 0 21 02/12/25 09:36 77 02/12/25 09:05 77 02/12/25 08:57 98.3 80 18 148/73 96 98.3 Laboratory Tests Test 02/12/25 10:40 White Blood Count 6.2 10^3/uL (4.4-10.8) Medications Medications Dose Ordered Sig/Joseph Route Start Time Stop Time Status Last Admin Dose Admin Albuterol 10 mg ONCE ONCE [facility] 02/12/25 09:30 02/12/25 09:31 DC 02/12/25 11:00 Ipratropium Simpson 1 mg ONCE ONCE [facility] 02/12/25 09:30 02/12/25 09:31 DC 02/12/25 11:00 Departure 1 Departure Time of Disposition: 11:30 Impression: Primary Impression: COPD exacerbation Disposition: ADMITTED INPATIENT Admit to: Med Surg Condition: Fair Critical Care Note Critical Care Time?: Yes (35 min-critical care time only) Stability Stability form required: Yes Unstable for transfer: Telemetry monitoring (Telemetry monitoring required), ED Physician Assesment (Clinical assesment) Heart Score Heart Score: Heart Score Response (Comments) Value History N/A 0 EKG N/A 0 Age N/A 0 Risk Factors N/A 0 Troponin N/A 0 Total 0 AVIVA SOSA MD Feb 12, 2025 09:36
--- NOTE | 2025-02-12 10:04 | DVH ---
CHEST RADIOGRAPH Indication: sob Technique: Frontal and lateral view of the chest was obtained Comparison: CT CHEST WITHOUT CONTRAST on DOS: 01/20/23 FINDINGS: Lines and Tubes: None Lungs: Clear Pleura: No effusion. No pneumothorax. Cardiomediastinal contours: Unremarkable Bones: Unremarkable IMPRESSION: No evidence of acute disease.
[2025-02-12 10:54] LABS: Hematocrit 41.8 % (41.0-53.0); Hemoglobin 14.5 g/dL (13.5-17.5); Mean Corpuscular Hemoglobin 32.7 pg (28.0-32.0); Mean Corpuscular Volume 94.3 fL (80.0-100.0); Nucleated Red Blood Cells % 0.1 %
[2025-02-12] MEDS: IPRATROPIUM BROM 0.5 MG/2.5ML INH SOL HHN ONE (11:00)
[2025-02-12] MEDS: ALBUTEROL SULF 2.5 MG/0.5ML(0.5%) NEB SOLN HHN ONE (11:00)
[2025-02-12 11:04] LABS: Potassium 4.0 mmol/L (3.5-5.1); Sodium 140 mmol/L (136-145)
[2025-02-12 11:05] LABS: Anion Gap 8 (5-15); Carbon Dioxide 24 mmol/L (20-31)
[2025-02-12 11:06] LABS: Calcium 9.1 mg/dL (8.7-10.4)
[2025-02-12 11:09] LABS: Chloride 108 mmol/L (98-107)
[2025-02-12 11:11] LABS: BUN/Creatinine Ratio 16.7 (10.0-20.0); Blood Urea Nitrogen 15 mg/dL (9-23)
[2025-02-12 11:13] LABS: Glucose 115 mg/dL (74-106)
[2025-02-12] MEDS: methylPREDNISolone SOD SUCC 125 MG/2 ML VL IV ONE (14:12)
[2025-02-12] MEDS ORDERED: ACETAMINOPHEN 325 MG TAB PO PRN (14:45)
[2025-02-12] MEDS: AZITHROMYCIN 500MG/ 250ML 250 ML IV SCH (15:36)
--- NOTE | 2025-02-12 15:45 | DVH ---
Indication: SOB Technique: CT axial images of the chest are obtained without contrast. Coronal and sagittal reformats were obtained. Radiation Dose Information: CTDI volume is 8.59 mGy. Dose-length product is 2.54 mGy*cm Comparison: CT CHEST WITHOUT CONTRAST on DOS: 01/20/23 FINDINGS: Trachea patent. No pneumothorax. Pulmonary emphysematous changes. Heart borderline enlarged in size. Aortic atherosclerotic disease. No supraclavicular, axillary lym phadenopathy. Small hiatal hernia. No supraclavicular, axillary lymphadenopathy [id number] thoracic degenerative disc disease. IMPRESSION: No pulmonary airspace consolidation. Pulmonary emphysematous changes. Atherosclerotic disease. Small hiatal hernia. Other findings as described.
--- NOTE | 2025-02-12 19:08 | DVHPNRES ---
Progress Note Objective vital signs Vital Sign Date Time Temp Pulse Resp B/P (MAP) Pulse Ox O2 Delivery O2 Flow Rate FiO2 02/12/25 11:00 20 95 Room Air* 0 21 02/12/25 09:36 77 02/12/25 08:57 98.3 148/73 98.3 medications Current Medications Medications Dose Ordered Sig/Joseph Route Start Time Stop Time Status Last Admin Dose Admin Enoxaparin Sodium 40 mg DAILY SC 02/13/25 10:00 Methylprednisolone Sodium Succinate 40 mg DAILY IV 02/13/25 10:00 Azithromycin 250 ml @ 125 mls/hr DAILY IV 02/12/25 15:04 02/12/25 15:36 125 MLS/HR Acetaminophen 325 mg Q4HP PRN PO 02/12/25 14:45 Losartan Potassium 100 mg DAILY PO 02/13/25 10:00 Albuterol 2.5 mg Q8HPRN PRN NEB 02/12/25 14:45 Ipratropium [place] 0.5 mg Q8HPRN PRN NEB 02/12/25 14:45 laboratory and microbiology Laboratory Tests 02/12/25 10:40 Test 02/12/25 10:40 Range/Units Serum Glucose 115 H 74-106 mg/dL My Orders My Orders Orders - PINEDA PEARSON Procedure Category Date Status Time Admit ADMIT 02/12/25 Transmitted 14:39 Code Status CODE 02/12/25 Transmitted 14:39 Vital Signs [facility] 02/12/25 In Process 14:39 Review Orders With LORAINE 02/12/25 In Process Adm. 14:39 Consistent DIET 02/12/25 Transmitted Carb(Ccho)Diabetes Dinner Notify Of Changes [facility] 02/12/25 In Process From Base 14:39 Advance Directive LORAINE 02/12/25 In Process 14:39 Patient Condition ORDERS 02/12/25 Transmitted 14:39 Allergies LORAINE 02/12/25 In Process 14:39 Ambulate Every 4hours LORAINE 02/12/25 In Process 14:39 Enoxaparin Sodium PHA 02/13/25 In Process (Lovenox) 10:[address] 02/12/25 Resulted 14:41 Methylprednisolone PHA 02/13/25 In Process Sod Succ (Solu Medrol 10:00 Acetaminophen Tablet PHA 02/12/25 In Process (Tylenol Tablet) 14:45 Losartan Tablet PHA 02/13/25 In Process (Cozaar Tablet) 10:00 Albuterol Medneb PHA 02/12/25 In Process (Ventolin Medneb) 14:45 Ipratropium Medneb PHA 02/12/25 In Process (Atrovent Medneb) 14:45 Azithromycin 500mg/ PHA 02/12/25 In Process 250ml (Zithromax 50 15:04 PINEDA PEARSON RESIDENT Feb 12, 2025 19:08
--- NOTE | 2025-02-12 19:09 | DVHHP2 ---
PINEDA PEARSON RESIDENT 02/12/251908: History of Present Illness History of Present Illness 72-year-old male with past medical history of COPD, hypertension, and hyperlipidemia who presented with one day of acute shortness of breath. He awoke in the middle of the night unable to breathe, with persistent dyspnea at rest. He denied cough, fever, and chills. He denied chest pain, syncope, or decline in baseline functional status. Similar but milder episodes have occurred previously. He has a significant smoking history. Home Medications: Loratadine 10 mg daily, Fluticasone nasal spray 50 mcg, Aspirin 81 mg daily, Losartan/HCTZ 100/12.5 mg daily, Carbamazepine ER 200 mg, Rosuvastatin 10 mg daily. Labs (02/12/25): WBC 6.2, Hgb 14.5, Plt 393. Differential: Neutrophils 70%, Lymphocytes 21%, Monocytes 7%. Microbiology: SARS-CoV-2 rapid antigen positive; influenza A/B pending. Imaging (CT chest 02/12/25): No pneumothorax or consolidation. Emphysematous changes. Borderline cardiomegaly. Aortic atherosclerosis. No supraclavicular/axillary lymphadenopathy. Small hiatal hernia. Review of Systems Constitutional: No: Fever, Chills, Sweats, Weakness, Malaise, Other Eyes: No: Pain, Vision change, Conjunctivae inflammation, Eyelid inflammation, Other, Redness ENT: No: Ear pain, Ear discharge, Nose pain, Nose discharge, Nose congestion, Mouth pain, Mouth swelling, Throat pain, Throat swelling, Other Respiratory: Shortness of breath; No: Cough, Dry, SOB with excertion, Wheezing, Hemoptysis, Pleuritic Pain, Sputum, Wheezing, Other Cardiovascular: No: Chest Pain, Palpitations, Orthopnea, Paroxysmal Noc. Dyspnea, Edema, Lt Headedness, Other Gastrointestinal: No: Nausea, Vomiting, Abdominal Pain, Diarrhea, Constipation, Melena, Hematochezia, Other Genitourinary: No Dysuria, No Frequency, No Incontinence, No Hematuria, No Retention, No Other Musculoskeletal: No: other, neck pain, shoulder pain, arm pain, back pain, hand pain, leg pain, foot pain Skin: No: Rash, Lesions, Jaundice, Bruising, Other Neurological: No: Weakness, Numbness, Incoordination, Change in speech, Confusion, Seizures, Other Allergies: Coded Allergies: NO KNOWN ALLERGIES (Unverified , 01/20/24) Medications Current Medications Medications Dose Ordered Sig/Joseph Route Start Time Stop Time Status Last Admin Dose Admin Enoxaparin Sodium 40 mg DAILY SC 02/13/25 10:00 Methylprednisolone Sodium Succinate 40 mg DAILY IV 02/13/25 10:00 Azithromycin 250 ml @ 125 mls/hr DAILY IV 02/12/25 15:04 02/12/25 15:36 125 MLS/HR Acetaminophen 325 mg Q4HP PRN PO 02/12/25 14:45 Losartan Potassium 100 mg DAILY PO 02/13/25 10:00 Albuterol 2.5 mg Q8HPRN PRN NEB 02/12/25 14:45 Ipratropium [place] 0.5 mg Q8HPRN PRN NEB 02/12/25 14:45 Exam Vital Signs Vital Signs Date Time Temp Pulse Resp B/P (MAP) Pulse Ox O2 Delivery O2 Flow Rate FiO2 02/12/25 11:00 20 95 Room Air* 0 21 02/12/25 09:36 77 02/12/25 08:57 98.3 148/73 98.3 General Appearance: Alert, Oriented X3 HEENT: Atraumatic, PERRLA Respiratory: Clear to auscultation, Normal air movement Cardiovascular: Regular rate, Normal S1 Abdominal: Normal bowel sounds, Soft Extremities: No clubbing, No cyanosis Skin: No rashes, No breakdown Neuro: Normal gait, Normal speech Psych/Mental Status: Mental status NL, Mood NL Labs/Xrays Labs Test 02/12/25 10:40 Range/Units White Blood Count 6.2 4.4-10.8 10^3/uL Red Blood Count 4.43 L 4.5-5.90 10^6/uL Hemoglobin 14.5 13.5-17.5 g/dL Hematocrit 41.8 41.0-53.0 % Mean Corpuscular Volume 94.3 80.0-100.0 fL Mean Corpuscular Hemoglobin 32.7 H 28.0-32.0 pg Mean Corpuscular Hemoglobin Concent 34.6 32.0-36.0 g/dL Red Cell Distribution Width 12.9 11.8-14.3 % Platelet Count 393 140-450 10^3/uL Mean Platelet Volume 7.6 6.9-10.8 fL Neutrophils (%) (Auto) 69.7 37.0-80.0 % Lymphocytes (%) (Auto) 21.1 10.0-50.0 % Monocytes (%) (Auto) 7.3 0.0-12.0 % Eosinophils (%) (Auto) 1.3 0.0-7.0 % Basophils (%) (Auto) 0.6 0.0-2.0 % Neutrophils # (Auto) 4.3 1.6-8.6 10 ^3/uL Lymphocytes # (Auto) 1.3 0.4-5.4 10 ^3/uL Monocytes # (Auto) 0.5 0-1.3 10 ^3/uL Eosinophils # (Auto) 0.1 0-0.8 10 ^3/uL Basophils # (Auto) 0 0-0.2 10 ^3/uL Nucleated Red Blood Cells 0.1 % Sodium Level 140 136-145 mmol/L Potassium Level 4.0 3.5-5.1 mmol/L Chloride Level 108 H 98-107 mmol/L Carbon Dioxide Level 24 20-31 mmol/L Anion Gap 8 5-15 Blood Urea Nitrogen 15 9-23 mg/dL Creatinine 0.90 0.700-1.30 mg/dL Glomerular Filtration Rate Calc 88 >90 mL/min BUN/Creatinine Ratio 16.7 10.0-20.0 Serum Glucose 115 H 74-106 mg/dL Calcium Level 9.1 8.7-10.4 mg/dL B-Type Natriuretic Peptide 25.95 0-100 pg/mL SEPSIS Sepsis Screen Date sepsis recognized/suspect: Feb 12, 2025 Time Sepsis recognized/suspect: 1856 Recent Procedure: No On Antibiotic Therapy: No Respiratory Rate >20: No Heart Rate >90: No Temp<36 C (96.8 F) or >38.3 C: No SBP <90 or MAP <65 mmHG: No New Acute Mental Status Change: No Is the patient on CPAP, BIPAP,: No Physician Orders Admit (02/12/25 14:39) Code Status (02/12/25 14:39) Vital Signs .PER UNIT PROTOCOL (02/12/25 14:39) Review Orders With Adm. (02/12/25 14:39) [facility]Diabetes (02/12/25 Dinner) Notify Md Of Changes From Base (02/12/25 14:39) Advance Directive (02/12/25 14:39) Patient Condition (02/12/25 14:39) Allergies (02/12/25 14:39) Ambulate Every 4hours Q4H (02/12/25 14:39) Enoxaparin Sodium (Lovenox) (02/13/25 10:00) Chest Without Contrast (02/12/25 14:41) Methylprednisolone Sod Succ (Solu Medrol (02/13/25 10:00) Acetaminophen Tablet (Tylenol Tablet) (02/12/25 14:45) Losartan Tablet (Cozaar Tablet) (02/13/25 10:00) Albuterol Medneb (Ventolin Medneb) (02/12/25 14:45) Ipratropium Medneb (Atrovent Medneb) (02/12/25 14:45) Azithromycin 500mg/ 250ml (Zithromax 50 (02/12/25 15:04) Laboratory Tests Test 02/12/25 10:40 White Blood Count 6.2 10^3/uL (4.4-10.8) Medications Medications Dose Ordered Sig/Joseph Route Start Time Stop Time Status Last Admin Dose Admin Albuterol 10 mg ONCE ONCE [facility] 02/12/25 09:30 02/12/25 09:31 DC 02/12/25 11:00 10 MG Azithromycin 250 ml @ 125 mls/hr DAILY IV 02/12/25 15:04 02/12/25 15:36 125 MLS/HR Ipratropium [place] 1 mg ONCE ONCE N 02/12/25 09:30 02/12/25 09:31 DC 02/12/25 11:00 1 MG Methylprednisolone Sodium Succinate 125 mg ONCE ONCE IV 02/12/25 09:30 02/12/25 09:31 DC 02/12/25 14:12 125 MG Assessment/Plan Assessment/Plan Assessment: 72M with COPD, HTN, HLD admitted for acute COPD exacerbation likely triggered by COVID-19 infection. Imaging showed emphysematous changes but no acute consolidation. Labs without leukocytosis. Currently on inhaled bronchodilators, steroids, azithromycin, and supportive care. #Acute respiratory failure due to below #SARS COVID infection #COPD exacerbation due to above #Hyperlipidemia #Hypertension Plan: Continue scheduled duonebs (albuterol/ipratropium) Continue systemic steroid course methylprednisone Continue azithromycin for 5 days Monitor oxygenation; supplemental O2 as needed to maintain SpO? [id number]%: 2lt Symptomatic management: antipyretics, hydration, lorazepam PRN Maintain nicotine patch for smoking cessation Continue home meds as appropriate: losartan DVT prophylaxis: enoxaparin 40 mg daily Case discussed with Dr Davison Full code Plan discussed with: Patient, Other (rn) My Orders Orders - PINEDA PEARSON RESIDENT Procedure Category Date Status Time Admit ADMIT 02/12/25 Transmitted 14:39 Code Status CODE 02/12/25 Transmitted 14:39 Vital Signs [facility] 02/12/25 In Process 14:39 Review Orders With [facility] 02/12/25 In Process Adm. 14:39 Consistent DIET 02/12/25 Transmitted Carb(Ccho)Diabetes Dinner Notify Md Of Changes [facility] 02/12/25 In Process From Base 14:39 Advance Directive [facility] 02/12/25 In Process 14:39 Patient Condition ORDERS 02/12/25 Transmitted 14:39 Allergies LORAINE 02/12/25 In Process 14:39 Ambulate Every 4hours LORAINE 02/12/25 In Process 14:39 Enoxaparin Sodium PHA 02/13/25 In Process (Lovenox) 10:[address] 02/12/25 Resulted 14:41 Methylprednisolone PHA 02/13/25 In Process Sod Succ (Solu Medrol 10:00 Acetaminophen Tablet PHA 02/12/25 In Process (Tylenol Tablet) 14:45 Losartan Tablet PHA 02/13/25 In Process (Cozaar Tablet) 10:00 Albuterol Medneb PHA 02/12/25 In Process (Ventolin Medneb) 14:45 Ipratropium Medneb PHA 02/12/25 In Process (Atrovent Medneb) 14:45 Azithromycin 500mg/ PHA 02/12/25 In Process 250ml (Zithromax 50 15:04 Date of Service: Feb 13, 2025 Billing Provider: UNA DAVISON MD Common Visit Codes: [id number] INP/OBS CARE (HIGH) ZOYA GIPSON 02/14/25 0734: Review of Systems Allergies: Coded Allergies: NO KNOWN ALLERGIES (Unverified , 01/20/24) UNA DAVISON MD 99: Date of Service: Feb 12, 2025 Billing Provider: UNA DAVISON MD Common Visit Codes: [id number] INP/OBS CARE (HIGH) Secondary Visit Codes: [id number]-[id number] CARE PLAN 30 MINUTES PINEDA PEARSON RESIDENT Feb 12, 2025 19:09 ZOYA GIPSON RESIDENT Feb 14, 2025 07:34 UNA DAVISON MD Feb 15, 2025 22:29
[2025-02-12 23:20] VITALS: PULSE 103; RESP 24
[2025-02-12 23:30] VITALS: BP 155/89; PULSE 98; RESP 20; TEMP 97.7; O2SAT 98
[2025-02-13] VITALS (13 sets, daily range): BP systolic 111–140; BP diastolic 63–86; PULSE 71–101; RESP 16–20; TEMP 97.5–98.2; O2SAT 93–99
[2025-02-13] MEDS: IPRATROPIUM BROM 0.5 MG/2.5ML INH SOL NEB PRN (00:15)
[2025-02-13] MEDS: ALBUTEROL SULF 2.5 MG/0.5ML(0.5%) NEB SOLN NEB PRN (00:15)
[2025-02-13] MEDS ORDERED: ASPI1TAB20 PO (00:18)
[2025-02-13] MEDS ORDERED: CARB200C8 PO (00:19)
[2025-02-13] MEDS ORDERED: FLUT50SP NAS (00:20)
[2025-02-13] MEDS ORDERED: ROSU10TA64 PO (00:20)
[2025-02-13] MEDS ORDERED: CARB200T39 PO (00:20)
[2025-02-13] MEDS ORDERED: LOSA100T33 PO (00:23)
[2025-02-13] MEDS: LORazepam 2MG/ML-1ML VIAL IV ONE (00:51)
[2025-02-13] MEDS: methylPREDNISolone SOD SUCC 40 MG/ML VL IV ONE (00:52)
[2025-02-13] MEDS: NICOTINE 14 MG/24HR TOPICAL PATCH TD ONE (00:54)
[2025-02-13 01:56] LABS: Urine Protein, UAD Negative (Negative)
[2025-02-13 02:07] LABS: Amphetamine Screen, Urine Neg (NEGATIVE); Barbiturate Scree,Urine Neg (NEGATIVE); Benzodiazephine Screen, Urine Neg (NEGATIVE); Cannabinoid Screen, Urine Neg (NEGATIVE); Cocaine Screen, Urine Neg (NEGATIVE); Opiate Scree,Urine Neg (NEGATIVE); Phencyclidine Screen, Urine Neg (NEGATIVE)
[2025-02-13 03:14] LABS: COVID19 ANTIGEN SOFIA FIA POSITIVE (NEGATIVE)
[2025-02-13 07:40] LABS: Hematocrit 37.7 % (41.0-53.0); Hemoglobin 13.2 g/dL (13.5-17.5); Mean Corpuscular Hemoglobin 32.9 pg (28.0-32.0); Mean Corpuscular Volume 94.0 fL (80.0-100.0); Nucleated Red Blood Cells % 0.1 %
[2025-02-13 07:47] LABS: INR 0.97 (0.9-1.15); Partial Thromboplastin Time 26.2 SEC (24.5-34.5); Prothrombin Time 10.3 sec (9.3-11.8)
[2025-02-13 07:49] LABS: Alanine Aminotransferase 32 U/L (7-40); Albumin 4.1 g/dL (3.2-4.8); Alkaline Phosphatase 80 U/L (46-116); Anion Gap 10 (5-15); BUN/Creatinine Ratio 25.0 (10.0-20.0); Bilirubin, Total 0.4 mg/dL (0.2-1.0); Blood Urea Nitrogen 22 mg/dL (9-23); Calcium 9.3 mg/dL (8.7-10.4); Carbon Dioxide 22 mmol/L (20-31); Cholesterol 150 mg/dL (< 200); HDL Cholesterol 52 mg/dL (40-59); Potassium 4.1 mmol/L (3.5-5.1); Sodium 141 mmol/L (136-145); Total Protein 6.7 g/dL (5.7-8.2); Triglycerides 59 mg/dL (< 150)
[2025-02-13 07:52] LABS: Chloride 109 mmol/L (98-107); Glucose 150 mg/dL (74-106)
[2025-02-13] MEDS: ALBUTEROL SULF HFA 90MCG INH 200DOSE IN PRN (08:36)
[2025-02-13] MEDS ORDERED: REMDESIVIR PER PHARMACY 0 ML IV SCH (08:45)
[2025-02-13] MEDS ORDERED: methylPREDNISolone SOD SUCC 40 MG/ML VL IV SCH (10:00)
[2025-02-13] MEDS: ENOXAPARIN SOD 40 MG/0.4 ML SYRINGE SC SCH (10:14)
[2025-02-13] MEDS: LOSARTAN POTASSIUM 50 MG TAB PO SCH (10:15)
[2025-02-13 11:12] LABS: Magnesium 2.2 mg/dL (1.6-2.6)
[2025-02-13] MEDS: carBAMazepine 200 MG TAB PO SCH (12:42)
[2025-02-13] MEDS: REMDESIVIR 200mg in NS 210mL LOADING DOSE ADULT IV ONE (12:42)
--- NOTE | 2025-02-13 14:08 | ECG ---
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
--- NOTE | 2025-02-13 15:14 | DVHPNRES ---
Progress Note Date Seen: Feb 13, 2025 Resident Creating Document: ELE WELCH RESIDENT Medical Necessity Reason Pt with a Central, PICC or Fol: No Subjective Review of Systems 72-year-old male with past medical history of COPD, hypertension, and hyperlipidemia who presented with one day of acute shortness of breath. He awoke in the middle of the night unable to breathe, with persistent dyspnea at rest. He denied cough, fever, and chills. He denied chest pain, syncope, or decline in baseline functional status. Similar but milder episodes have occurred previously. He has a significant smoking history. Home Medications: Loratadine 10 mg daily, Fluticasone nasal spray 50 mcg, Aspirin 81 mg daily, Losartan/HCTZ 100/12.5 mg daily, Carbamazepine ER 200 mg, Rosuvastatin 10 mg daily. Microbiology: SARS-CoV-2 rapid antigen positive on ; influenza A/B pending. Imaging (CT chest 02/12/25): No pneumothorax or consolidation. Emphysematous changes. Borderline cardiomegaly. Aortic atherosclerosis. No supraclavicular/axillary lymphadenopathy. Small hiatal hernia. Patient seen and evaluated bedside. Denies any acute event like fever, chest pain, cough, SOB, abdominal pain dysuria. Patient currently on 2 L oxygen via [place], patient not using oxygen at home. Started on remdesivir, Decadron today. No acute event overnight, vitals in normal range. Objective vital signs Vital Sign Date Time Temp Pulse Resp B/P (MAP) Pulse Ox O2 Delivery O2 Flow Rate FiO2 02/13/25 12:46 97.9 83 17 130/75 (93) 98 97.9 02/13/25 10:00 Nasal Cannula* 2 28 Total Intake and Output 02/12/25 02/12/25 02/13/25 15:00 23:00 07:00 Intake Total 0 ml Balance 0 ml medications Current Medications Medications Dose Ordered Sig/Joseph Route Start Time Stop Time Status Last Admin Dose Admin Enoxaparin Sodium 40 mg DAILY SC 02/13/25 10:00 02/13/25 10:14 40 MG Azithromycin 250 ml @ 125 mls/hr DAILY IV 02/12/25 15:04 02/13/25 10:13 125 MLS/HR Acetaminophen 325 mg Q4HP PRN PO 02/12/25 14:45 Losartan Potassium 100 mg DAILY PO 02/13/25 10:00 02/13/25 10:15 100 MG Nicotine 1 patch DAILY TD 02/14/25 10:00 Albuterol 180 mcg TID PRN IN 02/13/25 06:45 02/13/25 08:36 180 MCG Remdesivir 0 ml @ 0 mls/hr PER PHARMACY IV 02/13/25 08:45 02/15/25 08:46 Dexamethasone Sodium Phosphate 6 mg DAILY IV 02/13/25 10:00 02/13/25 12:42 6 MG Carbamazepine 200 mg BID PO 02/13/25 10:00 02/13/25 12:42 200 MG Remdesivir 100 mg/ Sodium Chloride 250 ml @ 250 mls/hr DAILY@1500 IV 02/14/25 15:00 02/15/25 15:59 Examination Constitutional: No: Fever, Chills, Sweats, Weakness, Malaise, Eyes: No: Pain, Vision change, Conjunctivae inflammation, Eyelid inflammation, Other, Redness ENT: No: Ear pain, Ear discharge, Nose pain, Nose discharge, Nose congestion, Mouth pain, Mouth swelling, Throat pain, Throat swelling, Other Respiratory: Shortness of breath; No: Cough, Dry, SOB with exertion, Wheezing, Hemoptysis, Pleuritic Pain, Sputum, Wheezing, on 2 L oxygen via NC Cardiovascular: No: Chest Pain, Palpitations, Orthopnea, Paroxysmal Noc. Gastrointestinal: No: Nausea, Vomiting, Abdominal Pain, Diarrhea, Constipation, Melena, Hematochezia, Other Genitourinary: No Dysuria, No Frequency, No Incontinence, No Hematuria, No Retention, No Other Musculoskeletal: No: other, neck pain, shoulder pain, arm pain, back pain, hand pain, leg pain, foot pain Skin: No: Rash, Lesions, Jaundice, Bruising, Other Neurological: No: Weakness, Numbness, Incoordination, Change in speech, Confusion, Seizures, Other laboratory and microbiology Laboratory Tests 02/13/25 07:08 Test 02/13/25 07:08 Range/Units Serum Glucose 150 H 74-106 mg/dL Problem List/Assessment/Plan Problem List/Assessment/Plan #Acute hypoxic respiratory failure due COVID pneumonia #SARS COVID pneumonia #COPD exacerbation #Emphysema #Ruled out acute CHF CT chest: Shows no pulmonary ER space consolidation, pulmonary emphysematous changes and small hiatal hernia CXR: no acute cardiopulmonary disease BNP 25.95 On oxygen therapy with nasal cannula 2 L/min. Goal SpO2 above 92% On optimal medical therapy (bronchodilators, remdesivir, azithromycin and Decadron) Contact and droplet isolation #Essential Hypertension #Hyperlipidemia #Type 2 diabetes mellitus Hemoglobin A1c 6.7 on 01/21/2025 On insulin sliding scale Currently on cardiac diet and consistent carbohydrate Continue home medication (losartan and Atorvastatin) Lipid profile within normal limits #History of migraine Carbamazepine 200 mg DVT prophylaxis: Enoxaparin GI prophylaxis: Not indicated Goals of care discussions. More than 21 minute spent with patient. Full code status. Case discussed with Dr. Davison. Plan discussed with: Patient, Other (Nurse) Date of Service: Feb 13, 2025 Billing Provider: UNA DAVISON MD Common Visit Codes: [id number] INP/OBS CARE(HIGH) ELE WELCH RESIDENT Feb 13, 2025 15:13 ZOAY GIPSON RESIDENT Feb 14, 2025 22:23 UNA DAVISON MD Feb 15, 2025 22:35
[2025-02-14] VITALS (15 sets, daily range): BP systolic 117–134; BP diastolic 60–78; PULSE 59–94; RESP 15–22; TEMP 97.8–98.3; O2SAT 94–100
[2025-02-14] MEDS: ALBUTEROL SULF 2.5 MG/0.5ML(0.5%) NEB SOLN NEB PRN (03:27)
[2025-02-14] MEDS: IPRATROPIUM BROM 0.5 MG/2.5ML INH SOL NEB PRN (03:27)
[2025-02-14 05:33] LABS: Hematocrit 37.2 % (41.0-53.0); Hemoglobin 12.8 g/dL (13.5-17.5); Mean Corpuscular Hemoglobin 32.5 pg (28.0-32.0); Mean Corpuscular Volume 94.2 fL (80.0-100.0); Nucleated Red Blood Cells % 0.0 %
[2025-02-14 05:50] LABS: Anion Gap 9 (5-15); Carbon Dioxide 23 mmol/L (20-31); Potassium 3.8 mmol/L (3.5-5.1); Sodium 144 mmol/L (136-145)
[2025-02-14 05:51] LABS: Calcium 9.2 mg/dL (8.7-10.4)
[2025-02-14 05:56] LABS: BUN/Creatinine Ratio 24.7 (10.0-20.0); Blood Urea Nitrogen 22 mg/dL (9-23)
[2025-02-14 06:03] LABS: Chloride 112 mmol/L (98-107); Glucose 111 mg/dL (74-106)
[2025-02-14] MEDS: NICOTINE 14 MG/24HR TOPICAL PATCH TD SCH (09:13)
[2025-02-14] MEDS: REMDESIVIR 100mg in NS 230mL (3 DAY REGIMEN) IV SCH (13:35)
[2025-02-14] MEDS: SALINE 0.65 % NASAL SPRAY 45ML BOTTLE EACHNOSTRI SCH (17:27)
--- NOTE | 2025-02-14 18:01 | DVHPNRES ---
Progress Note Date Seen: Feb 14, 2025 Resident Creating Document: ELE WELCH RESIDENT Medical Necessity Reason Pt with a Central, PICC or Fol: No Subjective Review of Systems 72-year-old male with past medical history of COPD, hypertension, and hyperlipidemia who presented with one day of acute shortness of breath. He awoke in the middle of the night unable to breathe, with persistent dyspnea at rest. He denied cough, fever, and chills. He denied chest pain, syncope, or decline in baseline functional status. Similar but milder episodes have occurred previously. He has a significant smoking history. Home Medications: Loratadine 10 mg daily, Fluticasone nasal spray 50 mcg, Aspirin 81 mg daily, Losartan/HCTZ 100/12.5 mg daily, Carbamazepine ER 200 mg, Rosuvastatin 10 mg daily. Patient seen and evaluated bedside. Patient denied any acute symptoms. No acute event reported overnight. Patient breathing improved being, off oxygen and monitor saturation in room air, target oxygen saturation in RA more than 92%. Second day IV remdesivir, no side effects reported by patient. Objective vital signs Vital Sign Date Time Temp Pulse Resp B/P (MAP) Pulse Ox O2 Delivery O2 Flow Rate FiO2 02/14/25 17:00 98.1 94 18 119/77 (91) 97 98.1 02/14/25 15:04 Room Air 0.0 02/14/25 15:04 21 Total Intake and Output 02/13/25 02/13/25 02/14/25 15:00 23:00 07:00 Intake Total 500 ml 550 ml 720 ml Balance 500 ml 550 ml 720 ml medications Current Medications Medications Dose Ordered Sig/Joseph Route Start Time Stop Time Status Last Admin Dose Admin Enoxaparin Sodium 40 mg DAILY SC 02/13/25 10:00 02/14/25 09:13 40 MG Azithromycin 250 ml @ 125 mls/hr DAILY IV 02/12/25 15:04 02/14/25 09:11 125 MLS/HR Acetaminophen 325 mg Q4HP PRN PO 02/12/25 14:45 Losartan Potassium 100 mg DAILY PO 02/13/25 10:00 02/14/25 09:12 100 MG Nicotine 1 patch DAILY TD 02/14/25 10:00 Remdesivir 0 ml @ 0 mls/hr PER PHARMACY IV 02/13/25 08:45 02/15/25 08:46 Dexamethasone Sodium Phosphate 6 mg DAILY IV 02/13/25 10:00 02/14/25 09:15 6 MG Carbamazepine 200 mg BID PO 02/13/25 10:00 02/14/25 09:11 200 MG Remdesivir 100 mg/ Sodium Chloride 250 ml @ 250 mls/hr DAILY@1500 IV 02/14/25 15:00 02/15/25 15:59 02/14/25 13:35 250 MLS/HR Albuterol 2.5 mg Q6HPRN PRN NEB 02/13/25 18:45 02/14/25 15:04 2.5 MG Ipratropium [place] 0.5 mg Q6HPRN PRN NEB 02/13/25 18:45 02/14/25 15:04 0.5 MG Sodium Chloride 1 spr QID EACHNOSTRI 02/14/25 18:00 02/14/25 17:27 1 SPR Examination Constitutional: No: Fever, Chills, Sweats, Weakness, Malaise, Eyes: No: Pain, Vision change, Conjunctivae inflammation, Eyelid inflammation ENT: No: Ear pain, Ear discharge, Nose pain, Nose discharge, Nose congestion, Mouth pain, Mouth swelling, Throat pain, Throat swelling Respiratory: Shortness of breath; No: Cough, Dry, SOB with excertion, Wheezing, Hemoptysis, Pleuritic Pain, Sputum, Wheezing, on room air Cardiovascular: No: Chest Pain, Palpitations, Orthopnea, Paroxysmal Noc. Gastrointestinal: No: Nausea, Vomiting, Abdominal Pain, Diarrhea, Constipation, Melena, Hematochezia Genitourinary: No Dysuria, No Frequency, No Incontinence, No Hematuria, Musculoskeletal: No: other, neck pain, shoulder pain, arm pain, back pain, hand pain, leg pain, foot pain Skin: No: Rash, Lesions, Jaundice, Bruising, Other Neurological: No: Weakness, Numbness, Incoordination, laboratory and microbiology Laboratory Tests 02/14/25 04:44 Test 02/14/25 04:44 Range/Units Serum Glucose 111 H 74-106 mg/dL Microbiology Date/Time Source Procedure Growth Status 02/13/25 21:00 Nose MRSA Screen - Final Complete Problem List/Assessment/Plan Problem List/Assessment/Plan #Acute hypoxic respiratory failure due COVID pneumonia #SARS COVID pneumonia #COPD exacerbation #Emphysema #Ruled out acute CHF CT chest: Shows no pulmonary ER space consolidation, pulmonary emphysematous changes and small hiatal hernia CXR: no acute cardiopulmonary disease BNP 25.95 On oxygen therapy with nasal cannula 2 L/min. Goal SpO2 above 92% On optimal medical therapy (bronchodilators, remdesivir 2/3 days, azithromycin and Decadron) Contact and droplet isolation #Essential Hypertension #Hyperlipidemia #Type 2 diabetes mellitus Hemoglobin A1c 6.7 on 01/21/2025 On insulin sliding scale Currently on cardiac diet and consistent carbohydrate Continue home medication (losartan and Atorvastatin) Lipid profile within normal limits #History of migraine Carbamazepine 200 mg DVT prophylaxis: Enoxaparin GI prophylaxis: Not indicated Goals of care discussions. More than 21 minute spent with patient. Full code status. Case discussed with Dr. Davison. Plan discussed with: Patient, Other (Nurse) My Orders My Orders Orders - ELE WELCH Procedure Category Date Status Time [place] ([place] Nasal PHA 02/14/25 In Process [place]) 18:00 Date of Service: Feb 14, 2025 Billing Provider: UNA DAVISON MD Common Visit Codes: [id number] INP/OBS CARE(HIGH) ELE WELCH Feb 14, 2025 18:01 ZOYA GIPSON Feb 14, 2025 22:24 UNA DAVISON MD Feb 22, 2025 21:38
[2025-02-15] VITALS (9 sets, daily range): BP systolic 119–150; BP diastolic 57–84; PULSE 65–88; RESP 16–19; TEMP 36.8; O2SAT 92–100
[2025-02-15 06:01] LABS: Hematocrit 36.3 % (41.0-53.0); Hemoglobin 12.6 g/dL (13.5-17.5); Mean Corpuscular Hemoglobin 32.4 pg (28.0-32.0); Mean Corpuscular Volume 93.6 fL (80.0-100.0); Nucleated Red Blood Cells % 0.1 %; Potassium 4.0 mmol/L (3.5-5.1); Sodium 145 mmol/L (136-145)
[2025-02-15 06:02] LABS: Anion Gap 10 (5-15); Calcium 9.1 mg/dL (8.7-10.4); Carbon Dioxide 23 mmol/L (20-31)
[2025-02-15 06:04] LABS: Chloride 112 mmol/L (98-107)
[2025-02-15 06:07] LABS: BUN/Creatinine Ratio 27.8 (10.0-20.0)
[2025-02-15 06:23] LABS: Blood Urea Nitrogen 25 mg/dL (9-23); Glucose 106 mg/dL (74-106)
[2025-02-15] MEDS: FLUTICASONE PROP NASAL SPR 0.05 % (50MCG) 16GM EACHNOSTRI SCH (09:45)
[2025-02-15] MEDS ORDERED: ACET-1882 PO (10:55)
[2025-02-15] MEDS ORDERED: NICO14DI9 TD (10:55)
[2025-02-15] MEDS ORDERED: AZIT-43 PO (10:55)
--- NOTE | 2025-02-16 15:33 | DVHDSRES ---
Discharge Summary Date of Admission Resident Creating Document: ELE WELCH RESIDENT Feb 12, 2025 at 14:39 Date of Discharge: Feb 15, 2025 Labs/Diagnostic Data: Laboratory Results Test 02/15/25 04:47 02/14/25 22:39 02/13/25 16:45 02/13/25 07:08 White Blood Count 7.9 10^3/uL (4.4-10.8) Red Blood Count 3.87 10^6/uL (4.5-5.90) Hemoglobin 12.6 g/dL (13.5-17.5) Hematocrit 36.3 % (41.0-53.0) Mean Corpuscular Volume 93.6 fL (80.0-100.0) Mean Corpuscular Hemoglobin 32.4 pg (28.0-32.0) Mean Corpuscular Hemoglobin Concent 34.7 g/dL (32.0-36.0) Red Cell Distribution Width 12.7 % (11.8-14.3) Platelet Count 410 10^3/uL (140-450) Mean Platelet Volume 7.9 fL (6.9-10.8) Neutrophils (%) (Auto) 63.8 % (37.0-80.0) Lymphocytes (%) (Auto) 23.8 % (10.0-50.0) Monocytes (%) (Auto) 11.5 % (0.0-12.0) Eosinophils (%) (Auto) 0.5 % (0.0-7.0) Basophils (%) (Auto) 0.4 % (0.0-2.0) Neutrophils # (Auto) 5.0 10 ^3/uL (1.6-8.6) Lymphocytes # (Auto) 1.9 10 ^3/uL (0.4-5.4) Monocytes # (Auto) 0.9 10 ^3/uL (0-1.3) Eosinophils # (Auto) 0 10 ^3/uL (0-0.8) Basophils # (Auto) 0 10 ^3/uL (0-0.2) Nucleated Red Blood Cells 0.1 % Sodium Level 145 mmol/L (136-145) Potassium Level 4.0 mmol/L (3.5-5.1) Chloride Level 112 mmol/L (98-107) Carbon Dioxide Level 23 mmol/L (20-31) Anion Gap 10 (5-15) Blood Urea Nitrogen 25 mg/dL (9-23) Creatinine 0.90 mg/dL (0.700-1.30) Glomerular Filtration Rate Calc 88 mL/min (>90) BUN/Creatinine Ratio 27.8 (10.0-20.0) Serum Glucose 106 mg/dL (74-106) Calcium Level 9.1 mg/dL (8.7-10.4) D-Dimer, Quantitative 0.41 mg/L FEU (0.0-0.49) Influenza Type A Antigen Negative (Negative) Influenza Type B Antigen Negative (Negative) Prothrombin Time 10.3 sec (9.3-11.8) Prothrombin Time INR 0.97 (0.9-1.15) Activated Partial Thromboplast Time 26.2 SEC (24.5-34.5) Phosphorus Level 3.4 mg/dL (2.4-5.1) Magnesium Level 2.2 mg/dL (1.6-2.6) Total Bilirubin 0.4 mg/dL (0.2-1.0) Aspartate Amino Transferase (AST) 25 U/L (13-40) Alanine Aminotransferase (ALT) 32 U/L (7-40) Alkaline Phosphatase 80 U/L (46-116) Total Protein 6.7 g/dL (5.7-8.2) Albumin 4.1 g/dL (3.2-4.8) Triglycerides Level 59 mg/dL (< 150) Cholesterol Level 150 mg/dL (< 200) LDL Cholesterol 92 mg/dL (< 100) HDL Cholesterol 52 mg/dL (40-59) Vitamin B12 Level 418 pg/mL (211-911) Vitamin D 25-Hydroxy 33.1 ng/mL (30.0-100) Thyroid Stimulating Hormone (TSH) 0.97 uIU/mL (0.55-4.78) Test 02/13/25 01:00 02/12/25 10:40 Urine Color Light-yellow (Yellow) Urine Clarity Clear (Clear) Urine pH 5.5 (5.0-9.0) Urine Specific [place] 1.022 (1.001-1.035) Urine Protein Negative (Negative) Urine Ketones Negative (Negative) Urine Blood 1+ /uL (Negative) Urine Nitrite Negative (Negative) Urine Bilirubin Negative (Negative) Urine Urobilinogen Normal mg/dL (Negative) Urine Leukocyte Esterase Negative /uL (Negative) Urine RBC None seen /hpf (0 - 3) Urine Microscopic WBC 1 /HPF (0-3) Urine Squamous Epithelial Cells None seen /hpf (<5) Urine Bacteria None seen /hpf (None Seen) Urine Glucose Normal mg/dL (Normal) Urine Opiates Screen Neg (NEGATIVE) Urine Fentanyl Screen Neg (NEGATIVE) Urine Barbiturates Screen Neg (NEGATIVE) Urine Phencyclidine Screen Neg (NEGATIVE) Urine Amphetamines Screen Neg (NEGATIVE) Urine Benzodiazepines Screen Neg (NEGATIVE) Urine Cocaine Screen Neg (NEGATIVE) Urine Cannabinoids Screen Neg (NEGATIVE) SARS-CoV-2 Antigen (Rapid) Positive (NEGATIVE) B-Type Natriuretic Peptide 25.95 pg/mL (0-100) Other Laboratory Tests 02/15/25 04:47 Brief Hx & Hospital Course: 72-year-old male with past medical history of COPD, hypertension, and hyperlipidemia who presented with one day of acute shortness of breath. He awoke in the middle of the night unable to breathe, with persistent dyspnea at rest. He denied cough, fever, and chills. He denied chest pain, syncope, or decline in baseline functional status. Similar but milder episodes have occurred previously. He has a significant smoking history. Home Medications: Loratadine 10 mg daily, Fluticasone nasal spray 50 mcg, Aspirin 81 mg daily, Losartan/HCTZ 100/12.5 mg daily, Carbamazepine ER 200 mg, Rosuvastatin 10 mg daily. Hospital course: Patient admitted acute hypoxic respiratory failure due to COVID pneumonia. CT chest -no plumonary air space consolidation, pulmonary emphysematous changes. CXR no acute cardiopulmonary disease. Patient treated conservatively according to covid protocol. Started Remdesivir due to increased oxygen demand. Patient tolerate treatment well and de-escalate Oxygen gradually. Patient having no oxygen requirement during discharge and O2 sat >92% in room air. Patient currently denies any any chest pain, SOB, cough, abdominal pain, diarrhea , fever or any acute symptoms. Patient educate regarding Covid isolation and precaution including using face mask, avoiding contact people who are high risk or immunocompromised. Patient is hemodynamically stable for discharge. The patient has received maximum benefits from inpatient treatment. Time was given to answer patient/ parents questions and concerns in Layman terms. patient verbalized understanding and agree with treatment and follow-up. Patient was recommended to return to the ED if she experiences any worsening symptoms such as, but not limited to current symptoms. Continue current home medication. Follow-up with discharge Clinic within 1 weeks, follow-up with Pulmonary within 2 week. Physical exam Constitutional: No: Fever, Chills, Sweats, Weakness, Malaise, Eyes: No: Pain, Vision change, Conjunctivae inflammation, Eyelid inflammation ENT: No: Ear pain, Ear discharge, Nose pain, Nose discharge, Nose congestion, Mouth pain, Mouth swelling, Throat pain, Throat swelling Respiratory: No: Cough, Dry, SOB with excertion, Wheezing, Hemoptysis, Pleuritic Pain, Sputum, Wheezing, on room air Cardiovascular: No: Chest Pain, Palpitations, Orthopnea, Paroxysmal Noc. Gastrointestinal: No: Nausea, Vomiting, Abdominal Pain, Diarrhea, Constipation, Melena, Hematochezia Genitourinary: No Dysuria, No Frequency, No Incontinence, No Hematuria, Musculoskeletal: No: other, neck pain, shoulder pain, arm pain, back pain, hand pain, leg pain, foot pain Skin: No: Rash, Lesions, Jaundice, Bruising, Other Neurological: No: Weakness, Numbness, Incoordination, Operations or Procedures CHEST RADIOGRAPH Indication: sob Technique: Frontal and lateral view of the chest was obtained Comparison: CT CHEST WITHOUT CONTRAST on DOS: 01/20/23 FINDINGS: Lines and Tubes: None Lungs: Clear Pleura: No effusion. No pneumothorax. Cardiomediastinal contours: Unremarkable Bones: Unremarkable IMPRESSION: No evidence of acute disease. ATED BY: MARCO VOSS MD DICTATED DATE/TIME: 02/12/25 1002 Indication: SOB Technique: CT axial images of the chest are obtained without contrast. Coronal and sagittal reformats were obtained. Radiation Dose Information: CTDI volume is 8.59 mGy. Dose-length product is 2.54 mGy*cm Comparison: CT CHEST WITHOUT CONTRAST on DOS: 01/20/23 FINDINGS: Trachea patent. No pneumothorax. Pulmonary emphysematous changes. Heart borderline enlarged in size. Aortic atherosclerotic disease. No supraclavicular, axillary lymphadenopathy. Small hiatal hernia. No supraclavicular, axillary lymphadenopathy Ilso-my-mrfxblvo thoracic degenerative disc disease. IMPRESSION: No pulmonary airspace consolidation. Pulmonary emphysematous changes. Atherosclerotic disease. Small hiatal hernia. Other findings as described. ATED BY: SAMIR MCRAE MD DICTATED DATE/TIME: 02/12/25 1546 Condition at Discharge: Stable Final Diagnosis/Problems List Acute respiratory failure due to COVID19 pneumonia SARS COVID pneumonia Acute exacerbation of COPD Emphysema Ruled out CHF Essential Hypertension Hyperlipidemia Type 2 diabetes mellitus Migraine Discharge Disposition: Home SNF Discharge Will this Physician continue t: No Discharge Instruct/Medications Diet: Cardiac 2g Na,low cholest Activity: No Restrictions, As Tolerated Follow Up/Referral: PCP Pulmonology Medications: Per EMR Scheduled Aspirin (Aspir-81), 1 TAB PO DAILY, (Reported) Fluticasone Propionate (Nasal) (Fluticasone Propionate), 1 SPRAY ROCAEL BID, (Reported) Gabapentin (Gabapentin), 1 CAP PO DAILY Losartan Potassium & Hydrochlo (Losartan Potassium/Hydroc), 1 TAB PO DAILY, (Reported) Nicotine (Nicotine), 1 PATCH TD DAILY Rosuvastatin Calcium (Rosuvastatin Calcium), 1 TAB PO DAILY, (Reported) Scheduled PRN Acetaminophen (Acetaminophen), 325 MG PO Q4HP PRN Albuterol Sulfate (Ventolin), 1.25 MG NEB Q4HPRN PRN Alprazolam (Xanax), 1 TAB PO TID PRN Ipratropium Evergreen (Ipratropium Evergreen), 0.5 MG NEB Q4HPRN PRN Miscellaneous Medications Carbamazepine (Carbamazepine Er), 200 MG PO, (Reported) Discontinued Medications Amoxicillin & Pot Clavulanate (Augmentin), 1 TAB PO BID Azithromycin (Azithromycin), 250 MG PO DAILY Clindamycin Hcl (Clindamycin Hcl), 1 CAP PO TID Loratadine & Pseudoephedrine (Claritin-D 24 Hour 10-240 mg), 1 TAB PO DAILY PRN Tramadol HCl (Tramadol HCl), 50 MG PO BID Discharge Statement: "Patient was advised to return to the ER or call 911 if any headaches, dizziness, shortness of breath, chest pain, abdominal pain, bleeding, fevers, or worsening of medical condition. Patient was counseled about treatment plan, medications, possible side effects, patientverbalized understanding. All questions were answered to the best of my ability. This discharge took greater then 30 minutes in planning, reviewing documentation, counseling the patient, and discussing with other team members." ASSESSMENT ASSESSMENT Assessment Acute respiratory failure due to community-acquired pneumonia Pneumonia secondary to COVID Date of Service: Feb 15, 2025 Billing Provider: UNA DAVISON MD Common Visit Codes: 32291-HRG/OBS DISCH DAY >30min ELE WELCH RESIDENT Feb 16, 2025 15:33 ZOYA GIPSON RESIDENT Feb 17, 2025 14:15 UNA DAVISON MD Feb 22, 2025 21:43
== END 2025-02-15 13:01 | disposition home or self-care (01) | DRG 177 ==
LOC: ER 08:55 → OVERFLOW 14:39 → WEST WING 23:14 → CENTRAL 02-13 03:22
PROVIDERS: ADMIT Student in an Organized Health Care Education/Training Program; ATTEND Student in an Organized Health Care Education/Training Program
PROC: XW033E5 Introduction of Remdesivir Anti-infective into Peripheral Vein, Percutaneous Approach, New Technology Group 5 (ICD-10-PCS; principal; 2025-02-13)
DX: U07.1 COVID-19 (principal); J12.82 Pneumonia due to coronavirus disease 2019; J96.01 Acute respiratory failure with hypoxia; J44.1 Chronic obstructive pulmonary disease with (acute) exacerbation; J44.0 Chronic obstructive pulmonary disease with (acute) lower respiratory infection; E78.5 Hyperlipidemia, unspecified; I10 Essential (primary) hypertension; G43.909 Migraine, unspecified, not intractable, without status migrainosus; J43.9 Emphysema, unspecified; F17.210 Nicotine dependence, cigarettes, uncomplicated
CPT/HCPCS: 36415; 71046; 71250; 80048; 80053; 80061; 80307; 81001; 82306; 82607; 83735; 83880; 84100; 84443; 85025; 85379; 85610; 85730; 87081; 87426; 87804; 93005; 94640; 94644; 96365; 96375; 99291; G0378; J1100

== ENCOUNTER 2025-02-16 13:05 | Inpatient (IN) | payer MEDICARE, MEDICAID ==
[~2025-02-16] VITALS: Ht 165.1 cm; Wt 73.9 kg
[~2025-02-16 13:05] MED LIST changes: +ACET-1882 PO; -AMOX500T86 PO; +ASPI1TAB20 PO; +AZIT-43 PO; +CARB200C8 PO; -CLIN1CAP70 PO; +FLUT50SP NAS; -LORA-1130 PO; +LOSA100T33 PO; +NICO14DI9 TD; +ROSU10TA64 PO
--- NOTE | 2025-02-16 13:26 | ED.PDOC ---
History of Present Illness HPI Comments 79-year-old male BIBA with prior medical history of hypertension, high lipids: Surgical history of hernia repair and a chief complaint of shortness a breath. EMS report that the patient was in this ER Tuesday of 02/12/2025 for shortness a breath and admitted, patient was released yesterday and still has onset of symptoms today. When EMS arrived on scene the patient had a saturation level of 98% on room air heart rate of 67. Patient notes that he does live with his daughter. Denies chills, fever, N/V/D, CP. No other associated symptoms, modifiers, recent injuries or sick contacts present at this time. Time Seen by MD: 13:15 Primary Care Provider: NORA Reviewed Notes: Nurses Notes, Medications, Allergies Allergies: Coded Allergies: NO KNOWN ALLERGIES (Unverified , 01/20/24) Home Meds Active Scripts Azithromycin (Azithromycin) 250 Mg Tab, 250 MG PO DAILY MDD 500 for 3 Days, #6 TAB 0 Refills 2 TABLETS ORALLY ON DAY ONE, THEN 1 TABLET ORALLY DAILY FOR 4 DAYS Prov:ZOYA GIPSON RESIDENT 02/15/25 Nicotine (Nicotine) 14 Mg/24 Hr Dis, 1 PATCH TD DAILY for 30 Days, #30 DIS Prov:ZOYA GIPSON RESIDENT 02/15/25 Acetaminophen (Acetaminophen) 325 Mg Tab, 325 MG PO Q4HP PRN for 10 Days, #50 TAB Prov:ZOYA GIPSON RESIDENT 02/15/25 Gabapentin (Gabapentin) 300 Mg Cap, 1 CAP PO DAILY for 30 Days, #30 CAP 0 Refills Prov:MENG ANG HOUSING COORDINATOR 01/08/25 Tramadol HCl (Tramadol HCl) 50 Mg Tab, 50 MG PO BID, #20 TAB Prov:JOSE SERRATO PA 01/04/25 Reported Medications Losartan Potassium & Hydrochlo (Losartan Potassium/Hydroc) 1 Tab Tab, 1 TAB PO DAILY, #30 TAB 5 Refills 02/13/25 Fluticasone Propionate (Nasal) (Fluticasone Propionate) 50 Mcg/Act Spr, 1 SPRAY ROCAEL BID 02/13/25 Rosuvastatin Calcium (Rosuvastatin Calcium) 10 Mg Tab, 1 TAB PO DAILY 02/13/25 Carbamazepine (CARBAMAZEPINE ER) 200 Mg Cap, 200 MG PO, CAP 02/13/25 Aspirin (Aspir-81) 81 Mg Tab, 1 TAB PO DAILY, #30 TAB 5 Refills 02/13/25 Discontinued Reported Medications Carbamazepine (Carbamazepine Er) 200 Mg Tab, 1 TAB PO 02/13/25 Discontinued Scripts Clindamycin Hcl (Clindamycin Hcl) 300 Mg Cap, 1 CAP PO TID, #30 CAP Prov:JOSE SERRATO 01/04/25 Loratadine & Pseudoephedrine (Claritin-D 24 Hour 10-240 mg) 1 Tab Tab, 1 TAB PO DAILY PRN for 7 Days, #7 TAB Prov:CARMENZA BOYD MD 01/20/24 Amoxicillin & Pot Clavulanate (Augmentin) 500 Mg Tab, 1 TAB PO BID, #14 TAB Prov:CARMENZA BOYD MD 01/20/24 Information Source: Patient, Emergency Med Personnel Mode of Arrival: EMS Severity: Moderate Timing: Hours Duration: Since onset, Hours Prehospital treatment: None Past Medical History PAST MEDICAL HISTORY: High Lipids, HTN Surgical History: Hernia Repair Family History Family History: Reviewed,noncontributory to illness, Unknown Social History Smoker: Unknown Alcohol: Unknown Drugs: Unknown Lives In: Home Constitutional: denies: chills, diaphoresis, fatigue, fever, malaise, sweats, weakness, others EENTM: denies: blurred vision, double vision, ear bleeding, ear discharge, ear drainage, ear pain, ear ringing, eye pain, eye redness, hearing loss, mouth pain, mouth swelling, nasal discharge, nose bleeding, nose congestion, nose pain, photophobia, tearing, throat pain, throat swelling, voice changes, others Respiratory: reports: shortness of breath; denies: cough, hemoptysis, orthopnea, SOB at rest, SOB with excertion, stridor, wheezing, others Cardiovascular: denies: chest pain, dizzy spells, diaphoresis, Dyspnea on exertion, edema, irregular heart beat, left arm pain, lightheadedness, palpitations, PND, syncope, others Gastrointestinal: denies: abdomen distended, abdominal pain, blood streaked bowels, constipated, diarrhea, dysphagia, difficulty swallowing, hematemesis, melena, nausea, poor appetite, poor fluid intake, rectal bleeding, rectal pain, vomiting, others Genitourinary: denies: burning, dysuria, flank pain, frequency, hematuria, incontinence, penile discharge, penile sore, pain, testicle pain, testicle swelling, urgency, others Neurological: denies: dizziness, fainting, headache, left sided numbness, left sided weakness, numbness, paresthesia, pre-existing deficit, right sided numbness, right sided weakness, seizure, speech problems, tingling, tremors, weakness, others Musculoskeletal: denies: back pain, gout, joint pain, joint swelling, muscle pain, muscle stiffness, neck pain, others Integumetry: denies: bruises, change in color, change in hair/nails, dryness, laceration, lesions, lumps, rash, wounds, others Allergic/Immunocompromised: denies: Difficulty Healing, Frequent Infections, Hives, Itching, others Hematologic/Lymphatic: denies: anemia, blood clots, easy bleeding, easy bruising, swollen glands, others Endocrine: denies: excessive hunger, excessive sweating, excessive thirst, excessive urination, flushing, intolerance to cold, intolerance to heat, unexplained weight gain, unexplained weight loss, others Psychiatric: denies: anxiety, bipolar disorder, depression, hopeless, panic disorder, schizophrenia, sleepless, suicidal, others All Other Systems: Reviewed and Negative Physical Exam General Appearance: Moderate Distress, Normal HEENT: Normal ENT Inspection, Pharynx Normal, TMs Normal Neck: Full Range of Motion, Non-Tender, Normal, Normal Inspection Respiratory: Chest Non-Tender, Lungs Clear, No Accessory Muscle Use, No Respiratory Distress, Normal Breath Sounds Cardiovascular: No Edema, No JVD, No Murmur, No Gallop, Normal Peripheral Pulses, Regular Rate/Rhythm Breast Exam: Deferred Gastrointestinal: No Organomegaly, Non Tender, No Pulsatile Mass, Normal Bowel Sounds, Soft Genitalia: Deferred Pelvic: Deferred Rectal: Deferred Extremities: No calf tenderness, Normal capillary refill, Normal inspection, Normal range of motion, Non-tender, No pedal edema Musculoskeletal : Apperance: Normal Neurologic: Alert, wine fermenter II-XII nml as Tested, No Motor Deficits, Normal Affect, Normal Mood, No Sensory Deficits Cerebellar Function: NOT DONE Reflexes: NOT DONE Skin: Dry, Normal Color, Warm Peripheral Pulses: 3+ Radial (R), 3+ Radial (L) Lymphatic: No Adenopathy Was a procedure done? Was a procedure done?: No EKG EKG : Pulse Rate (adult): 66 [place]: Normal Cardiac Rhythm: NSR Block: None Hypertrophy: None ST: Normal Differential Dx Considerations may include: Generalized weakness Electrolyte imbalance X-Ray, Labs, Meds, VS Vital Signs Date Time Temp Pulse Resp B/P (MAP) Pulse Ox O2 Delivery O2 Flow Rate FiO2 02/16/25 13:26 66 02/16/25 13:06 66 Lab Test 02/16/25 14:49 02/16/25 13:56 Range/Units Troponin I High Sensitivity 5 3 L </=54 ng/L White Blood Count 8.5 4.4-10.8 10^3/uL Red Blood Count 4.23 L 4.5-5.90 10^6/uL Hemoglobin 14.2 13.5-17.5 g/dL Hematocrit 40.0 #L 41.0-53.0 % Mean Corpuscular Volume 94.6 80.0-100.0 fL Mean Corpuscular Hemoglobin 33.5 H 28.0-32.0 pg Mean Corpuscular Hemoglobin Concent 35.4 32.0-36.0 g/dL Red Cell Distribution Width 12.7 11.8-14.3 % Platelet Count 465 H 140-450 10^3/uL Mean Platelet Volume 7.8 6.9-10.8 fL Neutrophils (%) (Auto) 68.1 37.0-80.0 % Lymphocytes (%) (Auto) 19.9 10.0-50.0 % Monocytes (%) (Auto) 11.1 0.0-12.0 % Eosinophils (%) (Auto) 0.3 0.0-7.0 % Basophils (%) (Auto) 0.6 0.0-2.0 % Neutrophils # (Auto) 5.8 1.6-8.6 10 ^3/uL Lymphocytes # (Auto) 1.7 0.4-5.4 10 ^3/uL Monocytes # (Auto) 0.9 0-1.3 10 ^3/uL Eosinophils # (Auto) 0 0-0.8 10 ^3/uL Basophils # (Auto) 0 0-0.2 10 ^3/uL Nucleated Red Blood Cells 0.1 % Sodium Level 144 136-145 mmol/L Potassium Level 3.9 3.5-5.1 mmol/L Chloride Level 111 H 98-107 mmol/L Carbon Dioxide Level 23 20-31 mmol/L Anion Gap 10 5-15 Blood Urea Nitrogen 30 H 9-23 mg/dL Creatinine 1.30 0.700-1.30 mg/dL Glomerular Filtration Rate Calc 57 >90 mL/min BUN/Creatinine Ratio 23.1 H 10.0-20.0 Serum Glucose 115 H 74-106 mg/dL Calcium Level 9.4 8.7-10.4 mg/dL Total Bilirubin 0.7 0.2-1.0 mg/dL Aspartate Amino Transferase (AST) 70 H 13-40 U/L Alanine Aminotransferase (ALT) 87 H 7-40 U/L Alkaline Phosphatase 93 46-116 U/L B-Type Natriuretic Peptide 16.46 0-100 pg/mL Total Protein 7.3 5.7-8.2 g/dL Albumin 4.6 3.2-4.8 g/dL [place] [id number] Ph: [phone] DIAGNOSTIC IMAGING Diagnostic Imaging Report : [id number] Signed PATIENT: MARSHA HATFIELDCCT: [id number] UNIT: [id number] : 1945 LOC: ER ROOM / BED: / AGE / SEX: 79 / M ADM STATUS: REG ER SERVICE 1329 ORDERING PHYSICIAN: DOREEN RIOS MD PROCEDURE(s): CXRP - CHEST PORTABLE REASON: sob ORDER NUMBER(s): [id number], ACCESSION NUMBER(s): [id number] INDICATION: sob TECHNIQUE: Frontal view of the chest. COMPARISON: CT CHEST WITHOUT CONTRAST on DOS: 02/12/25, XY CHEST TWO VIEWS ROUTINE on DOS: 02/12/25, CT CHEST WITHOUT CONTRAST on DOS: 01/20/23 FINDINGS: . The heart and mediastinal contours are grossly unremarkable. There is no evidence of pleural disease. The lungs are clear. The bony structures of the chest are intact without fracture. IMPRESSION: 1. No evidence of acute disease. ATED BY: JERARDO GUAMAN MD DICTATED DATE/TIME: 02/16/25 1429 SIGNED BY: JERARDO GUAMAN MD SIGNED DATE/TIME: 02/16/25 1429 Patient alert. Came in because of generalized weakness shortness a breath. Vitals stable. Answering questions. Chest x-ray reviewed does not show any acute changes. Reviewed his previous visit. Liver enzymes elevated. Cardiac marker within normal limits. WBC within normal limits. Patient insists there is something wrong with him. Possible pneumonitis pain Establish intravenous access. Was given steroid. Explained to the patient. Continue to monitor. Time of 1ST Reevaluation: 15:45 Reevaluation 1ST: Unchanged Patient Education/Counseling: Diagnosis, Treatment, Prognosis Family Education/Counseling: No Family Present SEPSIS Sepsis Screen Physician Orders Chest Portable (02/16/25 13:29) Urinalysis (02/16/25 13:29) Electrocardigram (02/16/25 15:56) Vital Signs Date Time Temp Pulse Resp B/P (MAP) Pulse Ox O2 Delivery O2 Flow Rate FiO2 02/16/25 13:26 66 02/16/25 13:06 66 Laboratory Tests Test 02/16/25 13:56 White Blood Count 8.5 10^3/uL (4.4-10.8) Departure 1 Departure Time of Disposition: 16:25 Impression: Primary Impression: Pneumonitis Disposition: ADMITTED INPATIENT Admit to: Med Surg Condition: Guarded Critical Care Note Critical Care Time?: No Stability Stability form required: No Heart Score Heart Score: Heart Score Response (Comments) Value History Slightly Suspicious 0 EKG Normal 0 Age >65 2 Risk Factors >3 or Hx ASHD 2 Troponin Normal limit 0 Total 4 I personally scribed for DOREEN RIOS MD ([email or web address]) on 02/16/25 at 13:26. Electronically submitted by Clif Enciso ([email or web address]). I personally scribed for DOREEN RIOS MD ([email or web address]) on 02/16/25 at 15:13. Electronically submitted by Milton Viera ([email or web address]). DOREEN RIOS MD Feb 16, 2025 13:26
[2025-02-16 14:29] LABS: Nucleated Red Blood Cells % 0.1 %
[2025-02-16 14:30] LABS: Hematocrit 40.0 % (41.0-53.0); Hemoglobin 14.2 g/dL (13.5-17.5); Mean Corpuscular Hemoglobin 33.5 pg (28.0-32.0); Mean Corpuscular Volume 94.6 fL (80.0-100.0)
--- NOTE | 2025-02-16 14:31 | DVH ---
INDICATION: sob TECHNIQUE: Frontal view of the chest. COMPARISON: CT CHEST WITHOUT CONTRAST on DOS: 02/12/25, XY CHEST TWO VIEWS ROUTINE on DOS: 02/12/25, CT C HEST WITHOUT CONTRAST on DOS: 01/20/23 FINDINGS: . The heart and mediastinal contours are grossly unremarkable. There is no evidence of pleural disea se. The lungs are clear. The bony structures of the chest are intact without fracture. IMPRESSION: 1. No evidence of acute disease.
[2025-02-16 14:41] LABS: Albumin 4.6 g/dL (3.2-4.8); Alkaline Phosphatase 93 U/L (46-116); Anion Gap 10 (5-15); BUN/Creatinine Ratio 23.1 (10.0-20.0); Bilirubin, Total 0.7 mg/dL (0.2-1.0); Calcium 9.4 mg/dL (8.7-10.4); Carbon Dioxide 23 mmol/L (20-31); Potassium 3.9 mmol/L (3.5-5.1); Sodium 144 mmol/L (136-145); Total Protein 7.3 g/dL (5.7-8.2)
[2025-02-16 14:43] LABS: Alanine Aminotransferase 87 U/L (7-40); Blood Urea Nitrogen 30 mg/dL (9-23); Chloride 111 mmol/L (98-107); Glucose 115 mg/dL (74-106)
[2025-02-16] MEDS ORDERED: MORPHINE SULFATE INJ 2 MG/ml SYRG IV PRN (19:45)
[2025-02-16] MEDS ORDERED: NITROGLYCERIN 0.4 MG SL TAB SL PRN (19:45)
[2025-02-16] MEDS ORDERED: ACETAMINOPHEN 325 MG TAB PO PRN (19:45)
[2025-02-16] MEDS: SODIUM CHLORIDE 0.9% 1,000 ML IV SCH (19:45)
[2025-02-16] MEDS ORDERED: ONDANSETRON HCL 4 MG/2 ML VIAL IV PRN (19:45)
--- NOTE | 2025-02-16 19:49 | DVHHPRES ---
History of Present Illness Resident Creating Document: ANGELICA HILL RESIDENT Reason for Visit: Acute Respiratory Failure History of Present Illness 79-year-old male PMH of hypertension, hyperlipidemia came to hospital by ambulance with chief complaint of shortness a breath. EMS report that the patient was in this ER recently on 02/12/2025 for shortness a breath and admitted, patient was diagnosed with COVID pneumonia, and got COVID treatment. patient was released yesterday and still has SOB today. When EMS arrived on scene the patient had a saturation level of 98% on room air heart rate of 67. Denies chills, fever, N/V/D, CP. No other associated symptoms, modifiers, recent injuries or sick contacts present at this time. Review of Systems Review of Systems CONSTITUTIONAL: Denies weight loss, fever and chills. HEENT: Denies changes in vision and hearing. RESPIRATORY: Admits SOB, Denies cough. CV: Denies palpitations and chest pain. GI: Denies abdominal pain, nausea, vomiting and diarrhea. : Denies dysuria and urinary frequency. MSK: Denies myalgia and joint pain. SKIN: Denies rash and pruritus. NEUROLOGICAL: Denies headache Allergies: Coded Allergies: NO KNOWN ALLERGIES (Unverified , 01/20/24) Medications Current Medications Medications Dose Ordered Sig/Joseph Route Start Time Stop Time Status Last Admin Dose Admin Sodium Chloride 1,000 ml @ 60 mls/hr [id number] IV 02/16/25 19:45 UNV Ondansetron HCl 4 mg Q4HP PRN IV 02/16/25 19:45 UNV Enoxaparin Sodium 40 mg DAILY SC 02/17/25 10:00 UNV Acetaminophen 650 mg Q6HP PRN PO 02/16/25 19:45 UNV Nitroglycerin 0.4 mg Q5MINP PRN SL 02/16/25 19:45 UNV Morphine Sulfate 2 mg Q30M PRN IV 02/16/25 19:45 UNV Exam Vital Signs Vital Signs Date Time Temp Pulse Resp B/P (MAP) Pulse Ox O2 Delivery O2 Flow Rate FiO2 02/16/25 13:26 66 Exam GENERAL: Not in acute distress. HEENT: EOMI, Moist mucous membranes. No scleral icterus. No cervical lymphadenopathy. LUNGS: Coarse bronchial sounds. No accessory muscle use. CARDIOVASCULAR: Regular rate and rhythm. No murmur. No JVD. ABDOMEN: Soft, nontender and nondistended. No palpable masses. EXTREMITIES: No edema. Nontender. SKIN: No rashes or lesions. Warm. NEUROLOGIC: Alert and oriented X3 Labs/Xrays Labs Test 02/16/25 14:49 02/16/25 13:56 Range/Units Troponin I High Sensitivity 5 </=54 ng/L White Blood Count 8.5 4.4-10.8 10^3/uL Red Blood Count 4.23 L 4.5-5.90 10^6/uL Hemoglobin 14.2 13.5-17.5 g/dL Hematocrit 40.0 #L 41.0-53.0 % Mean Corpuscular Volume 94.6 80.0-100.0 fL Mean Corpuscular Hemoglobin 33.5 H 28.0-32.0 pg Mean Corpuscular Hemoglobin Concent 35.4 32.0-36.0 g/dL Red Cell Distribution Width 12.7 11.8-14.3 % Platelet Count 465 H 140-450 10^3/uL Mean Platelet Volume 7.8 6.9-10.8 fL Neutrophils (%) (Auto) 68.1 37.0-80.0 % Lymphocytes (%) (Auto) 19.9 10.0-50.0 % Monocytes (%) (Auto) 11.1 0.0-12.0 % Eosinophils (%) (Auto) 0.3 0.0-7.0 % Basophils (%) (Auto) 0.6 0.0-2.0 % Neutrophils # (Auto) 5.8 1.6-8.6 10 ^3/uL Lymphocytes # (Auto) 1.7 0.4-5.4 10 ^3/uL Monocytes # (Auto) 0.9 0-1.3 10 ^3/uL Eosinophils # (Auto) 0 0-0.8 10 ^3/uL Basophils # (Auto) 0 0-0.2 10 ^3/uL Nucleated Red Blood Cells 0.1 % Sodium Level 144 136-145 mmol/L Potassium Level 3.9 3.5-5.1 mmol/L Chloride Level 111 H 98-107 mmol/L Carbon Dioxide Level 23 20-31 mmol/L Anion Gap 10 5-15 Blood Urea Nitrogen 30 H 9-23 mg/dL Creatinine 1.30 0.700-1.30 mg/dL Glomerular Filtration Rate Calc 57 >90 mL/min BUN/Creatinine Ratio 23.1 H 10.0-20.0 Serum Glucose 115 H 74-106 mg/dL Calcium Level 9.4 8.7-10.4 mg/dL Total Bilirubin 0.7 0.2-1.0 mg/dL Aspartate Amino Transferase (AST) 70 H 13-40 U/L Alanine Aminotransferase (ALT) 87 H 7-40 U/L Alkaline Phosphatase 93 46-116 U/L B-Type Natriuretic Peptide 16.46 0-100 pg/mL Total Protein 7.3 5.7-8.2 g/dL Albumin 4.6 3.2-4.8 g/dL SEPSIS Sepsis Screen Date sepsis recognized/suspect: Feb 16, 2025 Time Sepsis recognized/suspect: 1324 Recent Procedure: No On Antibiotic Therapy: No Respiratory Rate >20: No Heart Rate >90: No Temp<36 C (96.8 F) or >38.3 C: No SBP <90 or MAP <65 mmHG: No New Acute Mental Status Change: No Is the patient on CPAP, BIPAP,: No Physician Orders Chest Portable (02/16/25 13:29) Urinalysis (02/16/25 13:29) Electrocardigram (02/16/25 15:56) Admit (02/16/25 19:43) Code Status (02/16/25 19:43) Sodium Chloride 0.9% (02/16/25 19:45) Oxygen Per Hour (02/16/25 19:43) Ondansetron Hcl (Zofran) (02/16/25 19:45) Enoxaparin Sodium (Lovenox) (02/17/25 10:00) Complete Blood Count (02/17/25 04:00) Comprehensive Metabolic Panel (02/17/25 04:00) Acetaminophen Tablet (Tylenol Tablet) (02/16/25 19:45) Nitroglycerin Sublingual (Ntrostat Subli (02/16/25 19:45) Morphine Sulfate Injection (02/16/25 19:45) Oxygen By Nasal Cannula (02/16/25 19:43) Stat Ekg For Chest Pain (02/16/25 19:43) Notify Md Of Changes From Base (02/16/25 19:43) Attendance Officer For 24 Hours (02/16/25 19:43) Emergency Dysrhythmia Protocol (02/16/25 19:43) Rhythm Strips Once Every Shift (02/16/25 19:43) Vital Signs Date Time Temp Pulse Resp B/P (MAP) Pulse Ox O2 Delivery O2 Flow Rate FiO2 02/16/25 13:26 66 02/16/25 13:06 66 Laboratory Tests Test 02/16/25 13:56 White Blood Count 8.5 10^3/uL (4.4-10.8) Assessment/Plan Assessment/Plan # Acute hypoxic respiratory failure due to pneumonitis/COPD exacerbation # Emphysema # Ruled out acute CHF - CXR: no acute cardiopulmonary disease - BNP 16.46 - continue oxygen as needed, Goal SpO2 above 92% - breathing treatment as needed - IV antibiotic azithromycin daily #Essential Hypertension #Hyperlipidemia #Type 2 diabetes mellitus - Hemoglobin A1c 6.7 on 01/21/2025 - On insulin sliding scale - Currently on cardiac diet and consistent carbohydrate - Continue home medication (losartan and Atorvastatin) #History of migraine - Carbamazepine 200 mg DVT prophylaxis: Enoxaparin GI prophylaxis: Not indicated Goals of care discussed with patient for 32 minutes. Full code. Case discussed with Dr. Enamorado. Plan discussed with: Patient My Orders Orders - ANGELICA HILL RESIDENT Procedure Category Date Status Time Admit ADMIT 02/16/25 Transmitted 19:43 Code Status CODE 02/16/25 Transmitted 19:43 Sodium Chloride 0.9% PHA 02/16/25 Logged 19:45 Oxygen Per Hour RT 02/16/25 Transmitted 19:43 Ondansetron Hcl PHA 02/16/25 Logged (Zofran) 19:45 Enoxaparin Sodium PHA 02/17/25 Logged (Lovenox) 10:00 Complete Blood Count LAB 02/17/25 Verified 04:00 Comprehensive LAB 02/17/25 Verified Metabolic Panel 04:00 Acetaminophen Tablet PHA 02/16/25 Logged (Tylenol Tablet) 19:45 Nitroglycerin PHA 02/16/25 Logged Sublingual (Ntrostat 19:45 Morphine Sulfate PHA 02/16/25 Logged Injection 19:45 Oxygen By Nasal RT 02/16/25 Transmitted Cannula 19:43 Stat Ekg For Chest LORAINE 02/16/25 In Process Pain 19:43 Notify Md Of Changes LORAINE 02/16/25 In Process From Base 19:43 Attendance Officer For [facility] 02/16/25 In Process 24 Hours 19:43 Emergency Dysrhythmia [facility] 02/16/25 In Process Protocol 19:43 Rhythm Strips Once [facility] 02/16/25 In Process Every Shift 19:43 Date of Service: Feb 16, 2025 Billing Provider: ALEKSANDER ENAMORADO MD Common Visit Codes: 03156-WYWRANY INP/OBS CARE (HIGH) Secondary Visit Codes: 22213-[id number] CARE PLAN 30 MINUTES ANGELICA HILL RESIDENT Feb 16, 2025 19:49
[2025-02-16 22:00] LABS: COVID19 ANTIGEN SOFIA FIA NEGATIVE (NEGATIVE)
[2025-02-16] MEDS ORDERED: DEXTROSE (50%) 50ML SYRG IV PRN (22:45)
[2025-02-16] MEDS: AZITHROMYCIN 500MG/ 250ML 250 ML IV ONE (22:45)
[2025-02-17] VITALS (12 sets, daily range): BP systolic 107–137; BP diastolic 74–90; PULSE 69–103; RESP 16–20; TEMP 97.2–97.9; O2SAT 94–99
[2025-02-17] MEDS: ACCU-CHEK COMFORT CURVE STRIP VI SCH (06:54)
[2025-02-17] MEDS: InsuLIN REG 1unit/0.01ml Soln (100units/ml) SC SCH (06:54)
[2025-02-17 07:05] LABS: Hematocrit 36.8 % (41.0-53.0); Hemoglobin 13.0 g/dL (13.5-17.5); Mean Corpuscular Hemoglobin 33.4 pg (28.0-32.0); Mean Corpuscular Volume 94.4 fL (80.0-100.0); Nucleated Red Blood Cells % 0.3 %
[2025-02-17 07:15] LABS: Alkaline Phosphatase 83 U/L (46-116); Anion Gap 10 (5-15); BUN/Creatinine Ratio 26.2 (10.0-20.0); Calcium 8.9 mg/dL (8.7-10.4); Carbon Dioxide 22 mmol/L (20-31); Glucose 105 mg/dL (74-106); Potassium 3.9 mmol/L (3.5-5.1); Sodium 143 mmol/L (136-145); Total Protein 6.4 g/dL (5.7-8.2)
[2025-02-17 07:16] LABS: Albumin 4.0 g/dL (3.2-4.8); Bilirubin, Total 0.6 mg/dL (0.2-1.0)
[2025-02-17 07:21] LABS: Alanine Aminotransferase 80 U/L (7-40); Blood Urea Nitrogen 27 mg/dL (9-23); Chloride 111 mmol/L (98-107)
--- NOTE | 2025-02-17 09:30 | DVHPN2 ---
Subjective Decreasing shortness of breath; Egyptian speaking; used phone matthew to translate Reviewed: Care Plan, H&P, Labs, Medications, Previous Orders, Radiology Changes from previous H/P or p: Changes Objective Vitals Vital Signs Date Time Temp Pulse Resp B/P (MAP) Pulse Ox O2 Delivery O2 Flow Rate FiO2 02/17/25 05:45 95 Room Air 0.0 02/17/25 05:45 21 02/17/25 05:00 97.2 69 16 132/76 (94) 97.2 Intake/Output Intake and Output 02/17/25 07:00 Intake Total 100 ml Balance 100 ml Intake Oral 100 ml General Appearance: Alert, Oriented X3, Cooperative, No acute distress HEENT: Atraumatic Lungs: Clear to auscultation, Normal air movement Cardiovascular: Regular rate, Normal S1, Normal S2 Abdomen: Normal bowel sounds, Soft, No tenderness Extremities: No edema Neuro: Normal speech, Cranial nerves 3-12 NL Psych/Mental Status: Mental status NL, Mood NL Medications Current Medications Medications Dose Ordered Sig/Joseph Route Start Time Stop Time Status Last Admin Dose Admin Sodium Chloride 1,000 ml @ 60 mls/hr [id number] IV 02/16/25 19:45 02/16/25 19:45 60 MLS/HR Ondansetron HCl 4 mg Q4HP PRN IV 02/16/25 19:45 Enoxaparin Sodium 40 mg DAILY SC 02/17/25 10:00 Acetaminophen 650 mg Q6HP PRN PO 02/16/25 19:45 Nitroglycerin 0.4 mg Q5MINP PRN SL 02/16/25 19:45 Morphine Sulfate 2 mg Q30M PRN IV 02/16/25 19:45 Azithromycin 250 ml @ 125 mls/hr Q24H IV 02/17/25 21:00 Diagnostic Test (Pha) 1 strip ACHS 02/17/25 07:00 02/17/25 06:54 1 STRIP Insulin Human Regular ACHS SC 02/17/25 07:00 Dextrose 50 ml UD PRN IV 02/16/25 22:45 Albuterol 1.25 mg Q4HPRN PRN NEB 02/16/25 22:45 Ipratropium Burton 0.5 mg Q4HPRN PRN NEB 02/16/25 22:45 Gabapentin 300 mg DAILY PO 02/17/25 10:00 Nicotine 1 patch DAILY TD 02/17/25 10:00 Patient Own Medication 1 tab DAILY PO 02/17/25 10:00 Atorvastatin Calcium 1 mg DAILY PO 02/17/25 10:00 Carbamazepine 200 mg DAILY PO 02/17/25 10:00 Laboratory Results Laboratory Tests 02/17/25 06:12 Chemistry Test 02/16/25 13:56 02/17/25 06:12 Albumin 4.6 g/dL (3.2-4.8) 4.0 g/dL (3.2-4.8) Calcium Level 9.4 mg/dL (8.7-10.4) 8.9 mg/dL (8.7-10.4) Total Protein 7.3 g/dL (5.7-8.2) 6.4 g/dL (5.7-8.2) Cardiac Markers Test 02/16/25 13:56 B-Type Natriuretic Peptide 16.46 pg/mL (0-100) LFT Test 02/16/25 13:56 02/17/25 06:12 Alanine Aminotransferase (ALT) 87 U/L (7-40) H 80 U/L (7-40) H Alkaline Phosphatase 93 U/L (46-116) 83 U/L (46-116) Aspartate Amino Transferase (AST) 70 U/L (13-40) H 50 U/L (13-40) H Total Bilirubin 0.7 mg/dL (0.2-1.0) 0.6 mg/dL (0.2-1.0) Labs and/or images reviewed: Labs reviewed by me, Image(s) reviewed by me Assessment/Plan Assessment/Plan A 79-year-old male patient; with multiple comorbidities; who was recently admitted with COVID-19 pneumonia; who presented to the emergency department with recurrence of shortness of breath. Acute respiratory distress due to acute COPD exasperation in the setting of recent COVID-19 pneumonia; rapid COVID-19 testing was negative Acute COPD exacerbation Diabetes mellitus type 2 with dyslipidemia; recent A1c from January 2025 for 6.7% Hypertensive heart disease with chronic diastolic heart failure; not in exacerbation Metabolic syndrome with overweight and above comorbidities Tobacco use disorder Chronic migraines Overweight Continue IV antibiotics D-dimer ordered Counseled the patient on the importance of adopting healthy lifestyle with diet and exercise in order to lose weight Counseled on tobacco use cessation for 16 minutes; prescribed nicotine patch but he is refusing Continue antihypertensive medications and adjust according to blood pressure monitoring Continue insulin management and adjust according to blood glucose monitoring Continue home carbamazepine for chronic migraine To start oxygen therapy if needed Continue home statin Continue nebulizers On DVT prophylaxis Continue monitoring Goals of care discussed with the patient for 20 minutes; full code Late Entry. This medical document was created using an electronic medical record system with computerized dictation system. Although this document has been carefully reviewed, there might still be some phonetic and typographical errors. These areas are purely typographical due to imperfections of the software programs, and do not reflect any compromise in the patient's medical care. Plan discussed with: Patient, Other (Nurse) Date of Service: Feb 17, 2025 Billing Provider: BRYCE ABRAHAM MD Common Visit Codes: 40899-[id number] INP/OBS CARE(HIGH) Secondary Visit Codes: 24718-WHYLR CHNG SMOKING >10MIN (16 minutes), 42302- ADVANCED CARE PLAN 30 MINUTES (20 minutes) BRYCE ABRAHAM MD Feb 17, 2025 09:30
[2025-02-17] MEDS ORDERED: LOSARTAN POTASSIUM PO SCH (10:00)
[2025-02-17] MEDS ORDERED: HYDROCHLOROTHIAZIDE PO SCH (10:00)
[2025-02-17] MEDS: ATORVASTATIN 20 MG TAB PO SCH (10:00)
[2025-02-17] MEDS: HYDROCHLO PO SCH (10:00)
[2025-02-17] MEDS: LOSARTAN POTASSIUM PO SCH (10:00)
[2025-02-17] MEDS: NICOTINE 14 MG/24HR TOPICAL PATCH TD SCH (10:00)
[2025-02-17] MEDS: carBAMazepine 200 MG TAB PO SCH (10:18)
[2025-02-17] MEDS: GABAPENTIN 300 MG CAP PO SCH (10:18)
[2025-02-17] MEDS: ENOXAPARIN SOD 40 MG/0.4 ML SYRINGE SC SCH (10:18)
[2025-02-17 12:30] LABS: Urine Protein, UAD Negative (Negative)
[2025-02-17] MEDS: AZITHROMYCIN 500MG/ 250ML 250 ML IV SCH (22:33)
[2025-02-18] VITALS (14 sets, daily range): BP systolic 110–144; BP diastolic 68–82; PULSE 60–80; RESP 16–18; TEMP 97.5–98.3; O2SAT 94–100
[2025-02-18 07:58] LABS: Hematocrit 35.0 % (41.0-53.0); Hemoglobin 12.3 g/dL (13.5-17.5); Mean Corpuscular Hemoglobin 33.3 pg (28.0-32.0); Mean Corpuscular Volume 94.5 fL (80.0-100.0); Nucleated Red Blood Cells % 0.1 %
[2025-02-18 08:04] LABS: Albumin 3.5 g/dL (3.2-4.8); Alkaline Phosphatase 75 U/L (46-116); Anion Gap 8 (5-15); BUN/Creatinine Ratio 21.5 (10.0-20.0); Bilirubin, Total 0.7 mg/dL (0.2-1.0); Blood Urea Nitrogen 20 mg/dL (9-23); Carbon Dioxide 20 mmol/L (20-31); Potassium 3.9 mmol/L (3.5-5.1); Sodium 143 mmol/L (136-145); Total Protein 5.8 g/dL (5.7-8.2)
[2025-02-18 08:11] LABS: Alanine Aminotransferase 58 U/L (7-40); Calcium 8.6 mg/dL (8.7-10.4); Chloride 115 mmol/L (98-107); Glucose 115 mg/dL (74-106)
[2025-02-18] MEDS: ALBUTEROL SULF 2.5 MG/0.5ML(0.5%) NEB SOLN NEB PRN (09:19)
[2025-02-18] MEDS: IPRATROPIUM BROM 0.5 MG/2.5ML INH SOL NEB PRN (09:19)
--- NOTE | 2025-02-18 09:33 | DVHPN2 ---
Subjective Almost no shortness of breath; Tanzanian speaking; used phone matthew to translate Reviewed: Care Plan, H&P, Labs, Medications, Previous Orders, Radiology Changes from previous H/P or p: Changes Objective Vitals Vital Signs Date Time Temp Pulse Resp B/P (MAP) Pulse Ox O2 Delivery O2 Flow Rate FiO2 02/18/25 07:48 95 Room Air 0.0 02/18/25 07:48 21 02/18/25 05:00 97.5 61 16 123/77 (92) 97.5 Intake/Output Intake and Output 02/18/25 07:00 Intake Total 2370 ml Balance 2370 ml Intake Oral 1120 ml IV Total 1250 ml # Voids 6 General Appearance: Alert, Oriented X3, Cooperative, No acute distress HEENT: Atraumatic Lungs: Clear to auscultation, Normal air movement Cardiovascular: Regular rate, Normal S1, Normal S2 Abdomen: Normal bowel sounds, Soft, No tenderness Extremities: No edema Neuro: Normal speech, Cranial nerves 3-12 NL Psych/Mental Status: Mental status NL, Mood NL Medications Current Medications Medications Dose Ordered Sig/Joseph Route Start Time Stop Time Status Last Admin Dose Admin Sodium Chloride 1,000 ml @ 60 mls/hr [id number] IV 02/16/25 19:45 02/17/25 20:03 60 MLS/HR Ondansetron HCl 4 mg Q4HP PRN IV 02/16/25 19:45 Enoxaparin Sodium 40 mg DAILY SC 02/17/25 10:00 02/17/25 10:18 40 MG Acetaminophen 650 mg Q6HP PRN PO 02/16/25 19:45 Nitroglycerin 0.4 mg Q5MINP PRN SL 02/16/25 19:45 Morphine Sulfate 2 mg Q30M PRN IV 02/16/25 19:45 Azithromycin 250 ml @ 125 mls/hr Q24H IV 02/17/25 21:00 02/17/25 22:33 125 MLS/HR Diagnostic Test (Pha) 1 strip ACHS 02/17/25 07:00 02/18/25 06:35 1 STRIP Insulin Human Regular ACHS SC 02/17/25 07:00 Dextrose 50 ml UD PRN IV 02/16/25 22:45 Albuterol 1.25 mg Q4HPRN PRN NEB 02/16/25 22:45 Ipratropium [place] 0.5 mg Q4HPRN PRN NEB 02/16/25 22:45 Gabapentin 300 mg DAILY PO 02/17/25 10:00 02/17/25 10:18 300 MG Nicotine 1 patch DAILY TD 02/17/25 10:00 Atorvastatin Calcium 1 mg DAILY PO 02/17/25 10:00 Carbamazepine 200 mg DAILY PO 02/17/25 10:00 02/17/25 10:18 200 MG Patient Own Medication 1 tab DAILY PO 02/17/25 10:00 Fluticasone Propionate 50 mcg BID PRN EACHNOSTRI 02/17/25 12:15 Laboratory Results Laboratory Tests 02/18/25 05:27 Chemistry Test 02/18/25 05:27 Albumin 3.5 g/dL (3.2-4.8) Calcium Level 8.6 mg/dL (8.7-10.4) L Total Protein 5.8 g/dL (5.7-8.2) LFT Test 02/18/25 05:27 Alanine Aminotransferase (ALT) 58 U/L (7-40) H Alkaline Phosphatase 75 U/L (46-116) Aspartate Amino Transferase (AST) 27 U/L (13-40) Total Bilirubin 0.7 mg/dL (0.2-1.0) Urinalysis Test 02/16/25 12:17 Urine Color Light-yellow (Yellow) Urine Clarity Clear (Clear) Urine pH 5.0 (5.0-9.0) Urine Specific [place] 1.019 (1.001-1.035) Urine Protein Negative (Negative) Urine Ketones 1+ (Negative) H Urine Blood Trace /uL (Negative) H Urine Nitrite Negative (Negative) Urine Bilirubin Negative (Negative) Urine Urobilinogen Normal mg/dL (Negative) Urine Leukocyte Esterase Negative /uL (Negative) Urine RBC 1 /hpf (0 - 3) Urine Microscopic WBC 1 /HPF (0-3) Urine Squamous Epithelial Cells Few /hpf (<5) Urine Bacteria None seen /hpf (None Seen) Urine Glucose Normal mg/dL (Normal) Microbiology Microbiology Date/Time Source Procedure Growth Status 02/17/25 04:00 Nose MRSA Screen - Final Complete Labs and/or images reviewed: Labs reviewed by me, Image(s) reviewed by me Assessment/Plan Assessment/Plan A 79-year-old male patient; with multiple comorbidities; who was recently admitted with COVID-19 pneumonia; who presented to the emergency department with recurrence of shortness of breath. Acute respiratory distress due to acute COPD exasperation in the setting of recent COVID-19 pneumonia; rapid COVID-19 testing was negative Acute COPD exacerbation Diabetes mellitus type 2 with dyslipidemia; recent A1c from January 2025 for 6.7% Hypertensive heart disease with chronic diastolic heart failure; not in exacerbation Metabolic syndrome with overweight and above comorbidities Tobacco use disorder Chronic migraines Overweight Continue IV antibiotics D-dimer within normal limits Counseled the patient on the importance of adopting healthy lifestyle with diet and exercise in order to lose weight Counseled on tobacco use cessation; prescribed nicotine patch but he is refusing Continue antihypertensive medications and adjust according to blood pressure monitoring Continue insulin management and adjust according to blood glucose monitoring Continue home carbamazepine for chronic migraine To start oxygen therapy if needed Continue home statin Continue nebulizers On DVT prophylaxis Continue monitoring Possible discharge tomorrow Late Entry. This medical document was created using an electronic medical record system with computerized dictation system. Although this document has been carefully reviewed, there might still be some phonetic and typographical errors. These areas are purely typographical due to imperfections of the software programs, and do not reflect any compromise in the patient's medical care. Plan discussed with: Patient, Other (Nurse) My Orders Orders - BRYCE ABRAHAM MD Procedure Category Date Status Time Consistent DIET 02/17/25 Transmitted Carb(Ccho)Diabetes Lunch Fluticasone Nasal PHA 02/17/25 In Process [place] (Flonase [place]) 12:15 Complete Blood Count LAB 02/19/25 Verified 04:00 Comprehensive LAB 02/19/25 Verified Metabolic Panel 04:00 D-Dimer LAB 02/18/25 Logged 09:20 Date of Service: Feb 18, 2025 Billing Provider: BRYCE ABRAHAM MD Common Visit Codes: [id number] INP/OBS CARE(HIGH) BRYCE ABRAHAM MD Feb 18, 2025 09:33
[2025-02-18 10:37] LABS: Hepatitis B Surface Antigen Negative (Negative); Hepatitis C Antibody Negative (Negative)
--- NOTE | 2025-02-18 13:45 | ECG ---
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
[2025-02-19] VITALS (7 sets, daily range): BP systolic 123–149; BP diastolic 80–99; PULSE 62–81; RESP 16–18; TEMP 97.7–98.1; O2SAT 95–100
[2025-02-19 06:27] LABS: Hematocrit 34.5 % (41.0-53.0); Hemoglobin 12.1 g/dL (13.5-17.5); Mean Corpuscular Hemoglobin 32.9 pg (28.0-32.0); Mean Corpuscular Volume 94.0 fL (80.0-100.0); Nucleated Red Blood Cells % 0.0 %
[2025-02-19 06:41] LABS: Albumin 3.4 g/dL (3.2-4.8); Alkaline Phosphatase 73 U/L (46-116); Anion Gap 8 (5-15); BUN/Creatinine Ratio 17.7 (10.0-20.0); Bilirubin, Total 0.6 mg/dL (0.2-1.0); Blood Urea Nitrogen 14 mg/dL (9-23); Carbon Dioxide 22 mmol/L (20-31); Glucose 101 mg/dL (74-106); Potassium 3.6 mmol/L (3.5-5.1); Sodium 144 mmol/L (136-145)
[2025-02-19 06:56] LABS: Alanine Aminotransferase 42 U/L (7-40); Calcium 8.3 mg/dL (8.7-10.4); Chloride 114 mmol/L (98-107); Total Protein 5.6 g/dL (5.7-8.2)
[2025-02-19] MEDS: FLUTICASONE PROP NASAL SPR 0.05 % (50MCG) 16GM EACHNOSTRI PRN (09:17)
--- NOTE | 2025-02-19 11:46 | DVHPN2 ---
Subjective Feeling very anxious; no shortness of breath; Romansh speaking; used phone matthew to translate Reviewed: Care Plan, H&P, Labs, Medications, Previous Orders, Radiology Changes from previous H/P or p: Changes Objective Vitals Vital Signs Date Time Temp Pulse Resp B/P (MAP) Pulse Ox O2 Delivery O2 Flow Rate FiO2 02/19/25 08:59 97.7 71 16 149/99 (116) 98 97.7 02/19/25 08:00 Room Air* 0 21 Intake/Output Intake and Output 02/19/25 07:00 Intake Total 1425 ml Output Total 3 ml Balance 1422 ml Intake Oral 1175 ml IV Total 250 ml Output Urine Total 3 ml # Voids 6 # Bowel Movements 1 General Appearance: Alert, Oriented X3, Cooperative, No acute distress HEENT: Atraumatic Lungs: Clear to auscultation, Normal air movement Cardiovascular: Regular rate, Normal S1, Normal S2 Abdomen: Normal bowel sounds, Soft, No tenderness Extremities: No edema Neuro: Normal speech, Cranial nerves 3-12 NL Psych/Mental Status: Mental status NL, Mood NL Medications Current Medications Medications Dose Ordered Sig/Joseph Route Start Time Stop Time Status Last Admin Dose Admin Sodium Chloride 1,000 ml @ 60 mls/hr [id number] IV 02/16/25 19:45 02/18/25 21:40 60 MLS/HR Ondansetron HCl 4 mg Q4HP PRN IV 02/16/25 19:45 Enoxaparin Sodium 40 mg DAILY SC 02/17/25 10:00 02/19/25 09:18 40 MG Acetaminophen 650 mg Q6HP PRN PO 02/16/25 19:45 Nitroglycerin 0.4 mg Q5MINP PRN SL 02/16/25 19:45 Morphine Sulfate 2 mg Q30M PRN IV 02/16/25 19:45 Azithromycin 250 ml @ 125 mls/hr Q24H IV 02/17/25 21:00 02/18/25 21:24 125 MLS/HR Diagnostic Test (Pha) 1 strip ACHS 02/17/25 07:00 02/19/25 05:53 1 STRIP Insulin Human Regular ACHS SC 02/17/25 07:00 02/18/25 21:40 3 UNITS Dextrose 50 ml UD PRN IV 02/16/25 22:45 Albuterol 1.25 mg Q4HPRN PRN NEB 02/16/25 22:45 02/19/25 07:26 1.25 MG Ipratropium [place] 0.5 mg Q4HPRN PRN NEB 02/16/25 22:45 02/19/25 07:26 0.5 MG Gabapentin 300 mg DAILY PO 02/17/25 10:00 02/19/25 09:17 300 MG Nicotine 1 patch DAILY TD 02/17/25 10:00 Atorvastatin Calcium 1 mg DAILY PO 02/17/25 10:00 02/18/25 09:33 1 MG Carbamazepine 200 mg DAILY PO 02/17/25 10:00 02/19/25 09:17 200 MG Patient Own Medication 1 tab DAILY PO 02/17/25 10:00 Fluticasone Propionate 50 mcg BID PRN EACHNOSTRI 02/17/25 12:15 02/19/25 09:17 50 MCG Laboratory Results Laboratory Tests 02/19/25 05:14 Chemistry Test 02/19/25 05:14 Albumin 3.4 g/dL (3.2-4.8) Calcium Level 8.3 mg/dL (8.7-10.4) L Total Protein 5.6 g/dL (5.7-8.2) L LFT Test 02/19/25 05:14 Alanine Aminotransferase (ALT) 42 U/L (7-40) H Alkaline Phosphatase 73 U/L (46-116) Aspartate Amino Transferase (AST) 17 U/L (13-40) Total Bilirubin 0.6 mg/dL (0.2-1.0) Urinalysis Test 02/16/25 12:17 Urine Color Light-yellow (Yellow) Urine Clarity Clear (Clear) Urine pH 5.0 (5.0-9.0) Urine Specific [place] 1.019 (1.001-1.035) Urine Protein Negative (Negative) Urine Ketones 1+ (Negative) H Urine Blood Trace /uL (Negative) H Urine Nitrite Negative (Negative) Urine Bilirubin Negative (Negative) Urine Urobilinogen Normal mg/dL (Negative) Urine Leukocyte Esterase Negative /uL (Negative) Urine RBC 1 /hpf (0 - 3) Urine Microscopic WBC 1 /HPF (0-3) Urine Squamous Epithelial Cells Few /hpf (<5) Urine Bacteria None seen /hpf (None Seen) Urine Glucose Normal mg/dL (Normal) Microbiology Microbiology Date/Time Source Procedure Growth Status 02/17/25 04:00 Nose MRSA Screen - Final Complete Labs and/or images reviewed: Labs reviewed by me, Image(s) reviewed by me Assessment/Plan Assessment/Plan A 79-year-old male patient; with multiple comorbidities; who was recently admitted with COVID-19 pneumonia; who presented to the emergency department with recurrence of shortness of breath. Acute respiratory distress due to acute COPD exasperation in the setting of recent COVID-19 pneumonia; rapid COVID-19 testing was negative; resolved Acute COPD exacerbation; resolved Diabetes mellitus type 2 with dyslipidemia; recent A1c from January 2025 for 6.7% Hypertensive heart disease with chronic diastolic heart failure; not in exacerbation Metabolic syndrome with overweight and above comorbidities Tobacco use disorder Chronic migraines Overweight Anxiety/Panic attacks; no suicide ideation/plan Was on IV antibiotics D-dimer within normal limits Counseled the patient on the importance of adopting healthy lifestyle with diet and exercise in order to lose weight Counseled on tobacco use cessation; prescribed nicotine patch but he is refusing To resume home medications for hypertensive heart disease and diabetes mellitus type 2 Treated with insulin management during admission for diabetes mellitus type 2 To resume home carbamazepine and statin upon discharge No oxygen therapy needed during admission Was on DVT prophylaxis DME for nebulizer machine 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 Abraham next Tuesday Late Entry. This medical document was created using an electronic medical record system with computerized dictation system. Although this document has been carefully reviewed, there might still be some phonetic and typographical errors. These areas are purely typographical due to imperfections of the software programs, and do not reflect any compromise in the patient's medical care. Plan discussed with: Patient, Other (Nurse; sister; niece) Date of Service: Feb 19, 2025 Billing Provider: BRYCE ABRAHAM MD Common Visit Codes: [id number] INP/OBS CARE(MOD) BRYCE ABRAHAM MD Feb 19, 2025 11:46
[2025-02-19] MEDS ORDERED: ALPR0.5T PO (11:50)
[2025-02-19] MEDS ORDERED: IPR002IS NEB (11:50)
[2025-02-19] MEDS ORDERED: ALB5IS NEB (11:50)
--- NOTE | 2025-02-19 11:53 | DVHDS2 ---
Discharge Summary Date of Admission Feb 16, 2025 at 19:43 Date of Discharge: Feb 19, 2025 Admitting Diagnosis Recurrence of shortness of breath Labs/Diagnostic Data: Laboratory Results Test 02/19/25 05:51 02/19/25 05:14 02/18/25 10:30 02/17/25 06:12 POC Glucose 116 mg/dl (70-106) White Blood Count 6.5 10^3/uL (4.4-10.8) Red Blood Count 3.67 10^6/uL (4.5-5.90) Hemoglobin 12.1 g/dL (13.5-17.5) Hematocrit 34.5 % (41.0-53.0) Mean Corpuscular Volume 94.0 fL (80.0-100.0) Mean Corpuscular Hemoglobin 32.9 pg (28.0-32.0) Mean Corpuscular Hemoglobin Concent 35.0 g/dL (32.0-36.0) Red Cell Distribution Width 12.4 % (11.8-14.3) Platelet Count 367 10^3/uL (140-450) Mean Platelet Volume 8.0 fL (6.9-10.8) Neutrophils (%) (Auto) 63.0 % (37.0-80.0) Lymphocytes (%) (Auto) 25.6 % (10.0-50.0) Monocytes (%) (Auto) 9.3 % (0.0-12.0) Eosinophils (%) (Auto) 1.7 % (0.0-7.0) Basophils (%) (Auto) 0.4 % (0.0-2.0) Neutrophils # (Auto) 4.1 10 ^3/uL (1.6-8.6) Lymphocytes # (Auto) 1.7 10 ^3/uL (0.4-5.4) Monocytes # (Auto) 0.6 10 ^3/uL (0-1.3) Eosinophils # (Auto) 0.1 10 ^3/uL (0-0.8) Basophils # (Auto) 0 10 ^3/uL (0-0.2) Nucleated Red Blood Cells 0.0 % Sodium Level 144 mmol/L (136-145) Potassium Level 3.6 mmol/L (3.5-5.1) Chloride Level 114 mmol/L (98-107) Carbon Dioxide Level 22 mmol/L (20-31) Anion Gap 8 (5-15) Blood Urea Nitrogen 14 mg/dL (9-23) Creatinine 0.79 mg/dL (0.700-1.30) Glomerular Filtration Rate Calc 92 mL/min (>90) BUN/Creatinine Ratio 17.7 (10.0-20.0) Serum Glucose 101 mg/dL (74-106) Calcium Level 8.3 mg/dL (8.7-10.4) Total Bilirubin 0.6 mg/dL (0.2-1.0) Aspartate Amino Transferase (AST) 17 U/L (13-40) Alanine Aminotransferase (ALT) 42 U/L (7-40) Alkaline Phosphatase 73 U/L (46-116) Total Protein 5.6 g/dL (5.7-8.2) Albumin 3.4 g/dL (3.2-4.8) D-Dimer, Quantitative 0.43 mg/L FEU (0.0-0.49) Hepatitis B Surface Antigen Negative (Negative) Hepatitis C Antibody Negative (Negative) Test 02/16/25 21:24 02/16/25 14:49 02/16/25 13:56 02/16/25 12:17 Influenza Type A Antigen Negative (Negative) Influenza Type B Antigen Negative (Negative) SARS-CoV-2 Antigen (Rapid) Negative (NEGATIVE) Troponin I High Sensitivity 5 ng/L (</=54) B-Type Natriuretic Peptide 16.46 pg/mL (0-100) Urine Color Light-yellow (Yellow) Urine Clarity Clear (Clear) Urine pH 5.0 (5.0-9.0) Urine Specific [place] 1.019 (1.001-1.035) Urine Protein Negative (Negative) Urine Ketones 1+ (Negative) Urine Blood Trace /uL (Negative) Urine Nitrite Negative (Negative) Urine Bilirubin Negative (Negative) Urine Urobilinogen Normal mg/dL (Negative) Urine Leukocyte Esterase Negative /uL (Negative) Urine RBC 1 /hpf (0 - 3) Urine Microscopic WBC 1 /HPF (0-3) Urine Squamous Epithelial Cells Few /hpf (<5) Urine Bacteria None seen /hpf (None Seen) Urine Glucose Normal mg/dL (Normal) Other Laboratory Tests 02/19/25 05:14 Brief Hx & Hospital Course: A 79-year-old male patient; with multiple comorbidities; who was recently admitted with COVID-19 pneumonia; who presented to the emergency department with recurrence of shortness of breath. Details as below: Acute respiratory distress due to acute COPD exasperation in the setting of recent COVID-19 pneumonia; rapid COVID-19 testing was negative; resolved; could be related to anxiety/panic attacks Acute COPD exacerbation; resolved Diabetes mellitus type 2 with dyslipidemia; recent A1c from January 2025 for 6.7% Hypertensive heart disease with chronic diastolic heart failure; not in exacerbation Metabolic syndrome with overweight and above comorbidities Tobacco use disorder Chronic migraines Overweight Anxiety/Panic attacks; no suicide ideation/plan Was on IV antibiotics D-dimer within normal limits Counseled the patient on the importance of adopting healthy lifestyle with diet and exercise in order to lose weight Counseled on tobacco use cessation; prescribed nicotine patch but he is refusing To resume home medications for hypertensive heart disease and diabetes mellitus type 2 Treated with insulin management during admission for diabetes mellitus type 2 To resume home carbamazepine and statin upon discharge No oxygen therapy needed during admission Was on DVT prophylaxis 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 Abraham next Tuesday Late Entry. This medical document was created using an electronic medical record system with computerized dictation system. Although this document has been carefully reviewed, there might still be some phonetic and typographical errors. These areas are purely typographical due to imperfections of the software programs, and do not reflect any compromise in the patient's medical care. Condition at Discharge: Stable Final Diagnosis/Problems List Acute respiratory distress due to acute COPD exasperation Anxiety/Panic attacks Rest of diagnoses as above Discharge Disposition: Home Discharge Instruct/Medications Diet: Cardiac 2g Na,low cholest Activity: No Restrictions, As Tolerated Follow Up/Referral: To follow up with Dr. Abraham next Tuesday in [facility] at 8 am. Thank You! Medications: Nebulizers vials sent to pharmacy along with Xanax; DME ordered for nebulizer machine was placed for Reliability Engineer Scheduled Aspirin (Aspir-81), 1 TAB PO DAILY, (Reported) Fluticasone Propionate (Nasal) (Fluticasone Propionate), 1 SPRAY [place] BID, (Reported) Gabapentin (Gabapentin), 1 CAP PO DAILY Losartan Potassium & Hydrochlo (Losartan Potassium/Hydroc), 1 TAB PO DAILY, (Reported) Nicotine (Nicotine), 1 PATCH TD DAILY Rosuvastatin Calcium (Rosuvastatin Calcium), 1 TAB PO DAILY, (Reported) Scheduled PRN Acetaminophen (Acetaminophen), 325 MG PO Q4HP PRN Albuterol Sulfate (Ventolin), 1.25 MG NEB Q4HPRN PRN Alprazolam (Xanax), 1 TAB PO TID PRN Ipratropium [place] (Ipratropium [place]), 0.5 MG NEB Q4HPRN PRN Miscellaneous Medications Carbamazepine (Carbamazepine Er), 200 MG PO, (Reported) Discontinued Medications Amoxicillin & Pot Clavulanate (Augmentin), 1 TAB PO BID Azithromycin (Azithromycin), 250 MG PO DAILY Carbamazepine (Carbamazepine Er), 1 TAB PO, (Reported) Clindamycin Hcl (Clindamycin Hcl), 1 CAP PO TID Loratadine & Pseudoephedrine (Claritin-D 24 Hour 10-240 mg), 1 TAB PO DAILY PRN Tramadol HCl (Tramadol HCl), 50 MG PO BID Discharge Statement: "Patient was advised to return to the ER or call 911 if any headaches, dizziness, shortness of breath, chest pain, abdominal pain, bleeding, fevers, or worsening of medical condition. Patient was counseled about treatment plan, medications, possible side effects, patientverbalized understanding. All questions were answered to the best of my ability. This discharge took greater then 30 minutes in planning, reviewing documentation, counseling the patient, and discussing with other team members." Date of Service: Feb 19, 2025 Billing Provider: BRYCE ABRAHAM MD Common Visit Codes: [id number] DISCH DAY >30min BRYCE ABRAHAM MD Feb 19, 2025 11:53
== END 2025-02-19 14:10 | disposition home or self-care (01) | DRG 191 ==
LOC: ER 13:05 → EDBD 13:05 → OVERFLOW 19:43 → EAST 23:52
PROVIDERS: ADMIT Internal Medicine; ATTEND Internal Medicine
DX: J44.1 Chronic obstructive pulmonary disease with (acute) exacerbation (principal); I50.32 Chronic diastolic (congestive) heart failure; I11.0 Hypertensive heart disease with heart failure; E11.9 Type 2 diabetes mellitus without complications; J43.9 Emphysema, unspecified; J98.4 Other disorders of lung; E78.5 Hyperlipidemia, unspecified; G43.709 Chronic migraine without aura, not intractable, without status migrainosus; E66.3 Overweight; Z20.822 Contact with and (suspected) exposure to COVID-19; F41.0 Panic disorder [episodic paroxysmal anxiety]; E88.810 Metabolic syndrome; Z72.0 Tobacco use; Z87.01 Personal history of pneumonia (recurrent); Z86.16 Personal history of COVID-19; Z68.25 Body mass index [BMI] 25.0-25.9, adult
CPT/HCPCS: 36415; 71045; 80053; 81001; 82962; 83880; 84484; 85025; 85379; 86803; 87081; 87340; 87426; 87804; 93005; 94640; 96360; G0378; J1815

== ENCOUNTER 2025-04-24 08:07 | Outpatient (CLI) | payer MEDICARE, MEDICAID ==
[~2025-04-24 08:07] MED LIST changes: +ALB5IS NEB; +ALPR0.5T PO; -AZIT-43 PO; +IPR002IS NEB; -TRAM-626 PO
[2025-04-24 08:50] LABS: Triglycerides 113 mg/dL (< 150)
[2025-04-24 08:52] LABS: Cholesterol 183 mg/dL (< 200)
[2025-04-24 08:53] LABS: HDL Cholesterol 71 mg/dL (40-59)
== END 2025-04-24 17:00 | disposition home or self-care (01) ==
LOC: LAB 08:07
PROVIDERS: ATTEND Internal Medicine
DX: E11.9 Type 2 diabetes mellitus without complications (principal); Z12.11 Encounter for screening for malignant neoplasm of colon; Z79.899 Other long term (current) drug therapy
CPT/HCPCS: 36415; 80061; 83036; 84153

== ENCOUNTER 2025-05-02 11:46 | Outpatient (CLI) | payer MEDICARE, MEDICAID | END 2025-05-02 17:00 | disposition home or self-care (01) | LOC: LAB 11:46 | PROVIDERS: ATTEND Internal Medicine | DX: E11.9 Type 2 diabetes mellitus without complications (principal); Z12.11 Encounter for screening for malignant neoplasm of colon | CPT/HCPCS: 82270 ==